=== PATIENT | male | born 1965 | race Caucasian/White ===

== ENCOUNTER 2017-01-10 10:22 | Outpatient (CLI) ==
[2017-01-10 11:03] LABS: BASOPHILS # (AUTO) 0.1 K/uL (0-0.2); BASOPHILS % (AUTO) 1.3 % (0.0-3.0); EOSINOPHILS % (AUTO) 0.5 % (0.0-7.0); HEMATOCRIT 40.7 % (42.0-52.0); HEMOGLOBIN 15.6 g/dl (14.0-18.0); IMMATURE GRANULOCYTE % (AUTO) 0.3 % (0.0-5.0); LYMPHOCYTES # (AUTO) 0.7 K/uL (0.60-3.4); MEAN CORPUSCULAR HEMOGLOBIN 36.2 pg (27.0-31.0); MEAN CORPUSCULAR HGB CONC 38.3 (31.8-35.4); MEAN CORPUSCULAR VOLUME 94.4 fl (80.0-94.0); MONOCYTES # (AUTO) 0.4 K/uL (0.4-2.0); MONOCYTES % (AUTO) 10.7 (0-10); NEUTROPHILS # (AUTO) 2.8 K/ul (2.0-6.9); NEUTROPHILS % (AUTO) 70.2; PLATELET COUNT 89 10^3/uL (140-440); RED BLOOD COUNT 4.31 10^6/ul (4.70-6.10); WHITE BLOOD COUNT 3.94 K/ul (4.2-10.2)
[2017-01-10 11:24] LABS: ALBUMIN 3.5 g/dL (3.4-5.0); ALBUMIN/GLOBULIN RATIO 0.9; ANION GAP 17.1; BILIRUBIN,TOTAL 1.3 mg/dL (0.00-1.20); BUN/CREATININE RATIO 3.94; CALCIUM 8.4 mg/dL (8.2-10.2); CHOL/HDL RATIO 1.5 (4.5-6.4); CREATININE 0.76 mg/dL (0.60-1.10); POTASSIUM 4.1 mmol/L (3.5-5.1); TOTAL PROTEIN 7.4 g/dL (6.4-8.2)
== END 2017-01-10 10:23 | disposition home or self-care (01) ==
LOC: LAB 10:22
PROVIDERS: ATTEND Internal Medicine
DX: J44.9 Chronic obstructive pulmonary disease, unspecified (principal); E78.5 Hyperlipidemia, unspecified; I10 Essential (primary) hypertension; K21.9 Gastro-esophageal reflux disease without esophagitis
CPT/HCPCS: 36415; 80053; 80061; 82607; 83036; 84443; 85025

== ENCOUNTER 2017-01-11 10:21 | Emergency (ER) ==
[2017-01-11 10:27] VITALS: BP 148/105; TEMP 99.4; BMI 22.1
--- NOTE | 2017-01-11 11:06 | ED.PDOC ---
General ED Provider: Dr. ATIYA RICHARDS JR Chief Complaint: Non-specific Complaint Stated Complaint: ABNORMAL LIVER ENZYMES ROUTINE BLOOD DRAW. GAS LEAK HADN'T FELT WELL DR. BARRERA RAN LAB WORK HE USUALLY DRINKS UNTIL PASSES OUT T HASN'T HAD ANY 5 DAYS. DRINKS UNTIL HE PASSES OUT FOR 2-3 DAYS "LAY OFF" FOR DAYS THEN REPEAT 99.4 95 20 97% 148/105 had been syncopal in RV with gas leak but windows crackes complains of strange taste in mouth since episode does have sore throat Time Seen by Physician: 11:06 Mode of Arrival: Walk-In Information Source: Patient Exam Limitations: No limitations Primary Care Provider: STEFFANIE BARRERA Nursing and Triage Documentation Reviewed and Agree: No Review of Systems - Review Of Systems Constitutional: Reports: Malaise, Weakness, Loss of appetite Eyes: Reports: No symptoms Ears, Nose, Mouth, Throat: Reports: Throat pain Respiratory: Reports: Cough Cardiac: Reports: Lightheadedness GI: Reports: No symptoms : Reports: No symptoms Musculoskeletal: Reports: No symptoms Skin: Reports: No symptoms Neurological: Reports: No symptoms Endocrine: Reports: No symptoms Hematologic/Lymphatic: Reports: No symptoms All Other Systems: Other Past Medical History - Past Medical History Previously Healthy: Yes Endocrine: Reports: None Cardiovascular: Reports: None Respiratory: Reports: None Hematological: Reports: None Gastrointestinal: Reports: None Genitourinary: Reports: None Neuro/Psych: Reports: Anxiety, Depression Musculoskeletal: Reports: None Cancer: Reports: None Other Pertinent Past Medical History: alcohol abuse - Surgical History General Surgical History: Reports: Orthopedic (RIGHT FOREARM ) - Family History Family History: Reports: Unknown - Social History Smoking Status: Current every day smoker Hx Substance Use: No Alcohol Screening: Heavy Physical Exam - Physical Exam Appearance: Well-appearing, Thin Eyes: JAYASHREE, EOMI, Conjunctiva clear ENT: Ears normal, Nose normal, Erythema Neck: Supple Respiratory: Airway patent, Breath sounds equal, Breath sounds diminished, Rhonchi, Wheezes Cardiovascular: RRR, Pulses normal, No rub, No murmur GI/: Soft, Nontender, No masses, Bowel sounds normal, No Organomegaly Musculoskeletal: Normal strength, ROM intact, No edema, No calf tenderness Skin: Warm, Dry, Normal color Neurological: Sensation intact, Motor intact, Reflexes intact, Cranial nerves intact, Alert, Oriented Psychiatric: Affect appropriate, Mood appropriate Critical Care Note - Critical Care Note Total Time (mins): 0 Course - Course Hematology/Chemistry: 01/11/17 11:20 Orders, Labs, Meds: Lab Review 01/11/17 11:20 PT 10.5 INR 1.02 APTT 26.1 Sodium 126 L Potassium 3.7 Chloride 92 L Carbon Dioxide 22 Anion Gap 15.7 BUN 3 L Creatinine 0.78 Estimated GFR (MDRD) 104.00 BUN/Creatinine Ratio 3.84 Glucose 95 Calcium 9.0 Total Bilirubin 1.12 AST 182 H D ALT 151 H Alkaline Phosphatase 160 H Total Protein 7.9 Albumin 3.6 Globulin 4.3 Albumin/Globulin Ratio 0.84 Urine Color Yellow Urine Clarity Clear Urine pH 7.0 Ur Specific [place] 1.010 Urine Protein Negative Urine Glucose (UA) Negative Urine Ketones Trace Urine Blood Negative Urine Nitrite Negative Urine Bilirubin Negative Urine Urobilinogen 1.0 Ur Leukocyte Esterase Negative Orders Category Date Time Status COMPREHENSIVE METABOLIC PANEL Stat LAB 01/11/17 11:20 Completed HEPATITIS PANEL, ACUTE Stat LAB 01/11/17 11:20 Received MOLECULAR GROUP A STREP Stat LAB 01/11/17 11:20 Results PARTIAL THROMBOPLASTIN TIME Stat LAB 01/11/17 11:20 Completed PT WITH INR Stat LAB 01/11/17 11:20 Completed STREP SCREEN Stat LAB 01/11/17 11:20 Results UA [URINALYSIS C & S IF INDICATED] Stat LAB 01/11/17 11:20 Completed Vital Signs: Temp Pulse Resp BP Pulse Ox 01/11/17 10:21 99.4 F 95 H 20 148/105 H 97 Departure - Departure Time of Disposition: 12:35 Disposition: HOME SELF-CARE Discharge Problem: Hyponatremia, Alcoholic liver disorder Instructions: Fluid Restriction (ED), Hyponatremia (ED), Alcohol Use Disorder ( ED) Condition: Fair Pt referred to PMD for follow-up: Yes Additional Instructions: recheck PMD 2-3 days restrict water to one liter other liquids to one half liter add protein vegetables are recommended Allergies/Adverse Reactions: Allergies No Known Allergies Allergy (Unverified 01/11/17 10:29) Home Medications: Ambulatory Orders Budesonide/Formoterol Fumarate [Symbicort 80-4.5 Mcg Inhaler] 1 puff IH DAILY Diltiazem HCl 60 mg PO BID 01/11/17 Ranitidine HCl 150 mg PO DAILY 01/11/17
[2017-01-11 11:29] LABS: BILIRUBIN,URINE Negative (NEGATIVE); KETONES,URINE Trace (NEGATIVE); LEUKOCYTE ESTERASE ,URINE Negative (NEGATIVE); NITRITE,URINE Negative (NEGATIVE); PROTEIN,URINE Negative (NEGATIVE); URINE, BLOOD Negative (NEGATIVE)
[2017-01-11 11:30] LABS: ADD URINE MICROSCOPIC NO
[2017-01-11 11:38] LABS: ALBUMIN 3.6 g/dL (3.4-5.0); ALBUMIN/GLOBULIN RATIO 0.84; ANION GAP 15.7; BILIRUBIN,TOTAL 1.12 mg/dL (0.00-1.20); BUN/CREATININE RATIO 3.84; CREATININE 0.78 mg/dL (0.60-1.10); POTASSIUM 3.7 mmol/L (3.5-5.1); TOTAL PROTEIN 7.9 g/dL (6.4-8.2)
[2017-01-11 11:42] LABS: PARTIAL THROMBOPLASTIN TIME 26.1 SEC (23.9-40.0); PROTHROMBIN TIME 10.5 SEC (9.3-11.0)
== END 2017-01-11 12:58 | disposition home or self-care (01) ==
LOC: ED 10:21
DX: E87.1 Hypo-osmolality and hyponatremia (principal); K70.9 Alcoholic liver disease, unspecified; F17.210 Nicotine dependence, cigarettes, uncomplicated
CPT/HCPCS: 36415; 80053; 80074; 81001; 85610; 85730; 87651; 87880; 99283

== ENCOUNTER 2017-03-07 10:14 | Outpatient (CLI) ==
[2017-03-07 10:45] LABS: BASOPHILS % (AUTO) 0.7 % (0.0-3.0); HEMATOCRIT 44.9 % (42.0-52.0); HEMOGLOBIN 17.1 g/dl (14.0-18.0); IMMATURE GRANULOCYTE % (AUTO) 0.2 % (0.0-5.0); LYMPHOCYTES # (AUTO) 1.9 K/uL (0.60-3.4); LYMPHOCYTES % (AUTO) 42.4 (10.0-50.0); MEAN CORPUSCULAR HEMOGLOBIN 35.1 pg (27.0-31.0); MEAN CORPUSCULAR HGB CONC 38.1 (31.8-35.4); MEAN CORPUSCULAR VOLUME 92.2 fl (80.0-94.0); MONOCYTES # (AUTO) 0.4 K/uL (0.4-2.0); MONOCYTES % (AUTO) 7.8 (0-10); NEUTROPHILS # (AUTO) 2.2 K/ul (2.0-6.9); NEUTROPHILS % (AUTO) 48.9; PLATELET COUNT 57 10^3/uL (140-440); RED BLOOD COUNT 4.87 10^6/ul (4.70-6.10); WHITE BLOOD COUNT 4.51 K/ul (4.2-10.2)
[2017-03-07 11:09] LABS: ALBUMIN 2.8 g/dL (3.4-5.0); ALBUMIN/GLOBULIN RATIO 0.6; ANION GAP 18.3; BILIRUBIN,TOTAL 0.82 mg/dL (0.00-1.20); BUN/CREATININE RATIO 10.71; CALCIUM 8.3 mg/dL (8.2-10.2); CHOL/HDL RATIO 8.1 (4.5-6.4); CREATININE 0.84 mg/dL (0.60-1.10); POTASSIUM 4.3 mmol/L (3.5-5.1); TOTAL PROTEIN 7.5 g/dL (6.4-8.2)
[2017-03-07 20:01] VITALS: BMI 21.4
== END 2017-03-07 10:15 | disposition home or self-care (01) ==
LOC: LAB 10:14
PROVIDERS: ATTEND Internal Medicine
DX: J44.9 Chronic obstructive pulmonary disease, unspecified (principal); I10 Essential (primary) hypertension; E78.5 Hyperlipidemia, unspecified; K21.9 Gastro-esophageal reflux disease without esophagitis; Z12.5 Encounter for screening for malignant neoplasm of prostate
CPT/HCPCS: 36415; 80053; 80061; 84443; 85025

== ENCOUNTER 2017-03-07 15:38 | Inpatient (IN) ==
--- NOTE | 2017-03-07 15:55 | ED.PDOC ---
General ED Provider: Dr. ATIYA RICHARDS JR Chief Complaint: Abnormal Labs Stated Complaint: sent to hosp for outpt labs earlier today--md office notified him to report to er for admit due to low sodium--pt states has been fatigued-- had diarrhea recently[End]101.5 111 20 94% 109/80 right calf and thigh tenderness for 2-3 days Time Seen by Physician: 15:55 Mode of Arrival: Walk-In Information Source: Patient Exam Limitations: No limitations Primary Care Provider: STEFFANIE BARRERA Nursing and Triage Documentation Reviewed and Agree: No Review of Systems - Review Of Systems Constitutional: Reports: Malaise, Weakness Eyes: Reports: No symptoms Ears, Nose, Mouth, Throat: Reports: No symptoms Respiratory: Reports: No symptoms Cardiac: Reports: No symptoms GI: Reports: No symptoms : Reports: No symptoms Musculoskeletal: Reports: Muscle pain Skin: Reports: No symptoms Neurological: Reports: No symptoms Endocrine: Reports: No symptoms Hematologic/Lymphatic: Reports: No symptoms All Other Systems: Other Past Medical History - Past Medical History Previously Healthy: Yes Endocrine: Reports: None Cardiovascular: Reports: None Respiratory: Reports: None Hematological: Reports: None Gastrointestinal: Reports: None Genitourinary: Reports: None Neuro/Psych: Reports: Anxiety, Depression Musculoskeletal: Reports: None Cancer: Reports: None Other Pertinent Past Medical History: alcohol abuse - Surgical History General Surgical History: Reports: Orthopedic (RIGHT FOREARM ) - Family History Family History: Reports: Unknown - Social History Smoking Status: Current every day smoker, Heavy tobacco smoker Hx Substance Use: No Alcohol Screening: Heavy Physical Exam - Physical Exam Appearance: Well-appearing, Thin Pain Distress: Mild Eyes: JAYASHREE, EOMI, Conjunctiva clear ENT: Ears normal, Nose normal, Oropharynx normal Neck: Supple Respiratory: Airway patent, Rhonchi, Wheezes Cardiovascular: RRR, Pulses normal, No rub, No murmur GI/: Soft, Nontender, No masses, Bowel sounds normal, No Organomegaly Musculoskeletal: Normal strength, ROM intact, No edema, No calf tenderness Skin: Warm, Dry, Normal color Neurological: Sensation intact, Motor intact, Reflexes intact, Cranial nerves intact, Alert, Oriented Psychiatric: Affect appropriate, Mood appropriate Interpretation - Radiology Interpretation Radiology Interpretation By: Radiologist Radiology Results: No acute changes Exam Interpreted: CXR (old left sided rib fractures) - EKG Interpretation Time of EKG #1: 17:28 Rate: Normal Rhythm: Sinus (95) Ectopy: None [place]: NL ST Segment: Normal Physician Notification - Case Discussed Physician Notified: DR BARRERA Time of Notification: 18:45 (NS DT PRECAUTIONS) Critical Care Note - Critical Care Note Total Time (mins): 10 Course - Course Orders, Labs, Meds: Lab Review 03/07/17 03/07/17 15:55 16:18 D-Dimer (Manual) 7348.09 Lactic Acid 18.1 Procalcitonin 0.46 Urine Color Dark Urine Clarity Clear Urine pH 5.5 Ur Specific [place] 1.025 Urine Protein 2+ Urine Glucose (UA) Negative Urine Ketones 1+ Urine Blood Negative Urine Nitrite Negative Urine Bilirubin 2+ Urine Urobilinogen 4.0 Ur Leukocyte Esterase Negative Urine Microscopic RBC 0-2 Urine Microscopic WBC 0-2 Ur Squamous Epith Cells Not present Amorphous Sediment Trace Urine Mucus 3+ Plasma/Serum Alcohol < 10.0 Orders Category Date Time Status ADMIT PATIENT INPATIENT .TO [facility] (MONITORED BED) ADMISSION 03/07/17 18: 57 Active EKG-(ED ONLY) Stat CARDIO 03/07/17 17:15 Completed EKG-(IP & OP ONLY) DAILY CARDIO 03/08/17 06:00 Ordered EKG-(IP & OP ONLY) DAILY CARDIO 03/09/17 06:00 Ordered EKG-(IP & OP ONLY) DAILY CARDIO 03/10/17 06:00 Ordered ACTIVITY .Early Mobilization for VTE Prevention CARE 03/07/17 18:57 Active C-DIFF MONITORING (NURSING) BID CARE 03/07/17 16:04 Active INTAKE & OUTPUT Q8HR CARE 03/07/17 18:57 Active IV ACCESS ONCE CARE 03/07/17 15:51 Active NPO REMINDER: IMAGING ONCE CARE 03/07/17 17:26 Active TELEMETRY MONITORING TELE CARE 03/07/17 18:59 Active VITAL SIGNS Q8HR CARE 03/07/17 18:57 Active REGULAR DIET DIETARY 03/07/17 Dinner Ordered ED CHILD CAREGIVER APPLIED .ONCE EMERGENCY 03/07/17 15:51 Active ED VITAL SIGNS Q1HR EMERGENCY 03/07/17 15:51 Active ALCOHOL LEVEL [BLOOD ALCOHOL] Stat LAB 03/07/17 16:18 Completed BLOOD CULTURE Stat LAB 03/07/17 16:18 Received CBC W/ AUTO DIFF DAILY@0600 LAB 03/08/17 06:00 Ordered CBC W/ AUTO DIFF DAILY@0600 LAB 03/09/17 06:00 Ordered CBC W/ AUTO DIFF DAILY@0600 LAB 03/10/17 06:00 Ordered CBC W/ AUTO DIFF DAILY@0600 LAB 03/11/17 06:00 Ordered CBC W/ AUTO DIFF DAILY@0600 LAB 03/12/17 06:00 Ordered CBC W/ AUTO DIFF DAILY@0600 LAB 03/13/17 06:00 Ordered CBC W/ AUTO DIFF DAILY@0600 LAB 03/14/17 06:00 Ordered CBC W/ AUTO DIFF DAILY@0600 LAB 03/15/17 06:00 Ordered CBC W/ AUTO DIFF DAILY@0600 LAB 03/16/17 06:00 Ordered CBC W/ AUTO DIFF DAILY@0600 LAB 03/17/17 06:00 Ordered CBC W/ AUTO DIFF DAILY@0600 LAB 03/18/17 06:00 Ordered CBC W/ AUTO DIFF DAILY@0600 LAB 03/19/17 06:00 Ordered CBC W/ AUTO DIFF DAILY@0600 LAB 03/20/17 06:00 Ordered CBC W/ AUTO DIFF DAILY@0600 LAB 03/21/17 06:00 Ordered CBC W/ AUTO DIFF DAILY@0600 LAB 03/22/17 06:00 Ordered CBC W/ AUTO DIFF DAILY@0600 LAB 03/23/17 06:00 Ordered CBC W/ AUTO DIFF DAILY@0600 LAB 03/24/17 06:00 Ordered CBC W/ AUTO DIFF DAILY@0600 LAB 03/25/17 06:00 Ordered CBC W/ AUTO DIFF DAILY@0600 LAB 03/26/17 06:00 Ordered CBC W/ AUTO DIFF DAILY@0600 LAB 03/27/17 06:00 Ordered CMP [COMPREHENSIVE METABOLIC PANEL] Stat LAB 03/07/17 19:00 Received D-DIMER Stat LAB 03/07/17 16:18 Completed LACTIC ACID Stat LAB 03/07/17 16:18 Completed OCCULT BLOOD, STOOL Stat LAB 03/07/17 16:03 Uncollected PROCALCITONIN Stat LAB 03/07/17 16:18 Completed URINALYSIS C & S IF INDICATED Stat LAB 03/07/17 15:55 Completed c-diff [C. DIFFICILE] Routine LAB 03/07/17 16:03 Uncollected Nicotine 21 mg [Nicoderm 21 mg] MEDS 03/07/17 16:33 Discontinued 1 patch TD ONCE STA Sodium Chloride 0.9% [Sodium Chloride] 1,000 ml MEDS 03/07/17 15:57 Active IV 100 mls/hr Sodium Chloride 0.9% [Sodium Chloride] 1,000 ml MEDS 03/07/17 19:00 Ordered IV 75 mls/hr Sodium Chloride 0.9% [Sodium Chloride] 500 ml MEDS 03/07/17 15:57 Discontinued IV BOLUS RESUSCITATION STATUS Routine OTHERS 03/07/17 18:57 Ordered CHEST, 2 VIEWS PA & LAT Stat RADS 03/07/17 16:[address] CHEST PE PROTOCOL Stat RADS 03/07/17 17:25 Completed Medications Generic Name Dose Route Start Last Admin Trade Name Freq PRN Reason Stop Dose Admin Chlordiazepoxide HCl 25 mg 03/07/17 19:04 Librium PO Q4H PRN Alcohol Withdrawal Sodium Chloride 1,000 mls @ 100 mls/hr 03/07/17 15:57 03/07/17 17:17 Sodium Chloride IV 03/08/17 01:56 100 mls/hr .Q10H STA Administration Sodium Chloride 1,000 mls @ 75 mls/hr 03/07/17 19:00 Sodium Chloride IV .[id number] RAFA Discontinued Medications Generic Name Dose Route Start Last Admin Trade Name Freq PRN Reason Stop Dose Admin Chlordiazepoxide HCl 25 mg 03/07/17 19:30 Librium PO Q4H RAFA Sodium Chloride 500 mls @ 1,000 mls/hr 03/07/17 15:57 03/07/17 16:37 Sodium Chloride IV 03/07/17 16:26 1,000 mls/hr BOLUS STA Administration Nicotine 1 patch 03/07/17 16:33 03/07/17 16:41 Nicoderm 21 Mg TD 03/07/17 16:34 1 patch ONCE STA Administration Vital Signs: Temp Pulse Resp BP Pulse Ox 03/07/17 18:28 100.7 F H 93 H 20 133/90 03/07/17 16:48 101.7 F H 92 H 20 129/80 96 03/07/17 15:38 101.5 F H 111 H 20 109/80 94 L Departure - Departure Time of Disposition: 17:29 Disposition: ADMITTED INPATIENT Discharge Problem: Hyponatremia Condition: Stable Pt referred to PMD for follow-up: Yes Allergies/Adverse Reactions: Allergies No Known Allergies Allergy (Verified 03/07/17 15:46) Home Medications: Ambulatory Orders Budesonide/Formoterol Fumarate [Symbicort 80-4.5 Mcg Inhaler] 1 puff IH DAILY Diltiazem HCl 60 mg PO BID 01/11/17 Ranitidine HCl 150 mg PO DAILY 01/11/17
[2017-03-07] MEDS ORDERED: SODIUM CHLORIDE 500 ML IV STA (15:57)
[2017-03-07] MEDS ORDERED: SODIUM CHLORIDE 1,000 ML IV STA (15:57)
[2017-03-07 16:18] LABS: BILIRUBIN,URINE 2+ (NEGATIVE); KETONES,URINE 1+ (NEGATIVE); LEUKOCYTE ESTERASE ,URINE Negative (NEGATIVE); NITRITE,URINE Negative (NEGATIVE); PH,URINE 5.5 (5-9); PROTEIN,URINE 2+ (NEGATIVE); URINE, BLOOD Negative (NEGATIVE)
[2017-03-07 16:20] LABS: ADD URINE MICROSCOPIC YES
--- NOTE | 2017-03-07 16:30 | DI ---
EXAM: Two views of the chest. History: Cough and wheezing Comparison: Chest radiograph 01/13/2016 Findings: Heart size is within normal limits. No focal consolidation. No appreciable pleural flui d and no pneumothorax. No acute osseous abnormalities. Old left-sided rib fractures again noted. Atherosclerotic vascular calcifications. Impression: No acute cardiopulmonary process. No change compared to the prior study.
[2017-03-07] MEDS ORDERED: NICODERM 21 MG TD STA (16:33)
--- NOTE | 2017-03-07 18:28 | CT ---
Examination: CTA chest with contrast 03/07/2017 Clinical information: Fever, right calf tenderness. Comparison: Chest radiographs same day. TECHNIQUE: Postcontrast helical imaging was performed from the thoracic inlet to the lung bases [facility] CT PA protocol. 3 mm axial, sagittal and coronal, 3-D MIP sagittal and coronal, 3-D volume r endered and 3-D MIP images are submitted for review. FINDINGS: The main pulmonary arteries, lobar and segmental arterial branches opacify without eviden ce of pulmonary embolism. The thoracic aorta is normal in caliber. There is calcific atherosclerot ic plaque involving the thoracic aorta. Coronary artery calcifications are identified. The heart s ize is within normal limits. There is no pericardial nor pleural effusion. No enlarged axillary, m ediastinal or hilar lymphadenopathy is seen. No focal area of consolidation is evident within eithe r lung. There is trace right basilar atelectasis or fibrosis. Slight elevation of the right hemidia phragm. There are mild chronic anterior wedge compression deformities of the T6, T7, T8, T9 and T10 vertebral bodies with an accentuated thoracic kyphosis. Chronic mid and lower thoracic Schmorl's no vangie. There is an S-shaped thoracic scoliosis. Impression: 1. No CT evidence of acute disease within the chest. Specifically, no evidence of pulmonary emboli sm. 2. ASVD. 3. S-shaped thoracic scoliosis. Mild chronic anterior wedge compression deformities of the T6-T10 v ertebral bodies with an accentuated thoracic kyphosis. Consider Scheuermann disease. Chronic multi level Schmorl's nodes.
[2017-03-07] MEDS ORDERED: LIBRIUM PO PRN (19:04)
[2017-03-07 19:24] LABS: ALBUMIN 2.4 g/dL (3.4-5.0); ALBUMIN/GLOBULIN RATIO 0.71; ANION GAP 14.7; BILIRUBIN,TOTAL 0.66 mg/dL (0.00-1.20); BUN/CREATININE RATIO 12.5; CALCIUM 7.4 mg/dL (8.2-10.2); CREATININE 0.72 mg/dL (0.60-1.10); POTASSIUM 3.7 mmol/L (3.5-5.1); TOTAL PROTEIN 5.8 g/dL (6.4-8.2)
[2017-03-07] MEDS ORDERED: LIBRIUM PO SCH (19:30)
[2017-03-07 20:01] VITALS: BMI 21.4
[2017-03-07] MEDS: SODIUM CHLORIDE 1,000 ML IV SCH ×2 (20:16→23:30)
[2017-03-07] MEDS: THIAMINE IM SCH (21:30)
[2017-03-08 04:51] LABS: BASOPHILS % (AUTO) 0.9 % (0.0-3.0); HEMATOCRIT 36.5 % (42.0-52.0); HEMOGLOBIN 13.6 g/dl (14.0-18.0); IMMATURE GRANULOCYTE % (AUTO) 0.7 % (0.0-5.0); LYMPHOCYTES # (AUTO) 2.7 K/uL (0.60-3.4); LYMPHOCYTES % (AUTO) 59.7 (10.0-50.0); MEAN CORPUSCULAR HEMOGLOBIN 34.2 pg (27.0-31.0); MEAN CORPUSCULAR HGB CONC 37.3 (31.8-35.4); MEAN CORPUSCULAR VOLUME 91.7 fl (80.0-94.0); MONOCYTES # (AUTO) 0.6 K/uL (0.4-2.0); MONOCYTES % (AUTO) 12.2 (0-10); NEUTROPHILS # (AUTO) 1.2 K/ul (2.0-6.9); NEUTROPHILS % (AUTO) 26.5; PLATELET COUNT 52 10^3/uL (140-440); RED BLOOD COUNT 3.98 10^6/ul (4.70-6.10); WHITE BLOOD COUNT 4.59 K/ul (4.2-10.2)
[2017-03-08 05:03] LABS: ALBUMIN 2.2 g/dL (3.4-5.0); ALBUMIN/GLOBULIN RATIO 0.65; ANION GAP 12.9; BILIRUBIN,TOTAL 0.64 mg/dL (0.00-1.20); BUN/CREATININE RATIO 13.23; CALCIUM 7.4 mg/dL (8.2-10.2); CREATININE 0.68 mg/dL (0.60-1.10); POTASSIUM 3.9 mmol/L (3.5-5.1); TOTAL PROTEIN 5.6 g/dL (6.4-8.2)
[2017-03-08] MEDS: SYMBICORT 80-4.5 MCG INHALER IH SCH (08:17)
[2017-03-08] MEDS: CARDIZEM PO SCH ×2 (08:19→20:31)
[2017-03-08] MEDS: ZANTAC PO SCH ×2 (08:19→20:31)
[2017-03-08] MEDS: THIAMINE IM SCH (08:21)
[2017-03-08] MEDS ORDERED: NON-FORMULARY MEDICATION (Ranitidine Hcl [Ranitidine Hcl] 150 MG) PO SCH ×22 (09:00)
--- NOTE | 2017-03-08 10:05 | US ---
EXAM: Ultrasound abdomen limited. HISTORY: Thrombocytopenia. Focal ileus. COMPARISON: None available. TECHNIQUE: Abdominal, real time with image documentation: limited (eg, single organ, quadrant, fol low-up) FINDINGS: The liver demonstrates homogeneous echotexture without intrahepatic biliary dilatation. Portal venous flow is normal in direction. The gallbladder contains some low level internal echoes. The gallbladder is without shadowing stones, wall thickening or pericholecystic fluid. Common connor t measures approximately 0.4 cm. The pancreas is not well seen due to bowel gas. IMPRESSION: 1. Gallbladder sludge. 2. No acute sonographic abnormality of the liver, gallbladder or biliary system
--- NOTE | 2017-03-08 10:08 | US ---
Exam: Limited miller-scale ultrasonographic evaluation of the spleen and left kidney. Limited ultrasound evaluation of the abdomen. Comparison: None available. Reason for exam: Thrombocytopenia. FINDINGS: The spleen measures approximately 9.83 x 4.42 x 8.37 cm with normal appearing echotexture and normal vascular flow. No parenchymal lesions are seen within the spleen. The left kidney measures approximately 10.84 x 5.25 x 4.21 cm without hydronephrosis or nephrolithia sis. Impression: Unremarkable ultrasonographic evaluation of the spleen and left kidney.
[2017-03-08] MEDS: SODIUM CHLORIDE 1,000 ML IV SCH (11:54)
--- NOTE | 2017-03-08 14:10 | PCM.PROG ---
Attending Provider: ATTENDING PROVIDER: Dr. STEFFANIE BARRERA DATE OF SERVICE: 03/08/17 SUBJECTIVE: This 51 year old WHITE/ M was hospitalized 03/07/17. The patient is hospitalized with hyponatremia. He has history of chronic hyponatremia but this time sodium was 118 and is feeling normal. He hasl no complaints. The patient is an alcoholic, is malnourished and doesn't eat regular meals. He drinks heavily and smokes heavily; has a poor lifestyle. The patient lives alone and is taken care of by a cousin. No other immediate family members. REVIEW OF SYSTEMS: CONSTITUTIONAL: No night sweats. No fatigue, malaise, lethargy. No fever or chills. HEENT: Eyes: No visual changes. No eye pain. No eye discharge. ENT: No runny nose. No epistaxis. No sinus pain. No odynophagia. No congestion. RESPIRATORY: No cough, no congestion. No hemoptysis. CARDIOVASCULAR: No angina symptoms. No CHF symptoms. No atypical chest pain for CAD. No palpitations. No shortness of breath. GASTROINTESTINAL: No abdominal pain. No nausea or vomiting. No diarrhea or constipation. No hematemesis. No hematochezia. GENITOURINARY: No urgency. No frequency. No dysuria. No hematuria. No obstructive symptoms. No discharge. No pain. No significant abnormal bleeding. MUSCULOSKELETAL: Generalized bodyaches. NEUROLOGICAL: Awake, alert, oriented to time, place and person. No headache. No neck pain. No syncope. No seizures. No dizziness. PSYCHIATRIC: Not anxious. No depression. No suicidal thoughts. No homicidal thoughts. SKIN: No rash. No lesions. No wounds. ENDOCRINE: No unexplained weight loss. No weight gain. HEMATOLOGIC/LYMPHATIC: No anemia. No purpura. No petechiae. No prolonged or excessive bleeding. No palpable lymph nodes. PHYSICAL EXAMINATION: GENERAL: The patient is awake, alert and oriented, lying in bed in no distress. VITAL SIGNS: Temperature 97.6 F, Pulse 96, Respiratory Rate 24, BP 122/72, Pulse Ox 96% HEENT: Head normocephalic, atraumatic. Eyes: Extraocular muscles are intact. Pupils are equal, round and reactive to light and accommodation. Ears: No lesions. Nose appeared normal. Throat: No exudate or erythema. NECK: Supple. No JVD, no carotid bruit. No lymphadenopathy or thyromegaly. LUNGS: Decreased breath sounds. Clear to auscultation. Percussion note normal. Chest symmetrical. HEART: S1, S2, no S3. No murmurs. No cyanosis or clubbing. No ascites. Pulses: Dorsalis pedis and posterior tibial pulses +1 to +2 both sides. ABDOMEN: Soft. Non-tender. Bowel sounds active. No CVA tenderness. No mass felt. EXTREMITIES: No edema. Full range of motion of all extremities, equal. NEUROLOGIC: No focal deficit. Cranial nerves II through XII are grossly intact. No headache, no double vision or headache. SKIN: Not dry. Intact. Turgor-normal. LYMPHATIC: No palpable lymph nodes/no lymphedema. MUSCULOSKELETAL: Normal joints with no swelling. Muscle tone is normal. LAB REVIEW: 03/08/17 04:20 03/08/17 04:20 03/08/17 04:20: WBC 4.59, RBC 3.98 L, Hgb 13.6 L D, Hct 36.5 L D, MCV 91.7, MCH 34.2 H, MCHC 37.3 H, RDW Coeff of Marcus 13.1, Plt Count 52 L, Immature Gran % ( Auto) 0.7, Neut % (Auto) 26.5, Lymph % (Auto) 59.7 H, [place] % (Auto) 12.2 H, Eos % (Auto) 0.0, Baso % (Auto) 0.9, Immature Gran # (Auto) 0.0, Neut # 1.2 L, Lymph # 2.7, Coleman # 0.6, Eos # 0.0, Baso # 0.0, Sodium 122 L, Potassium 3.9, Chloride 91 L, Carbon Dioxide 22, Anion Gap 12.9, BUN 9, Creatinine 0.68, Estimated GFR (MDRD) 122.00, BUN/Creatinine Ratio 13.23, Glucose 85, Calcium 7.4 L, Total Bilirubin 0.64, AST 70 H, ALT 42, Alkaline Phosphatase 93, Total Protein 5.6 L, Albumin 2.2 L, Globulin 3.4, Albumin/Globulin Ratio 0.65 ASSESSMENT: 1. Hyponatremia likely alcoholism and increased fluid intake secondary to that. 2. Thrombocytopenia; abnormal liver profile; history of abnormal liver profile likely alcoholic hepatitis/possibility of liver cirrhosis, rule out. PLAN: 1. Ultrasound of liver and spleen 2. Restrict fluid intake by 500 cc Plan and coordination of the patient's care discussed in the presence of Raking Machine Operator and nurse. EDUCATION: Discussion with the patient concerning his diagnoses and strongly advised the patient to quit smoking and to seek help for his alcoholism. The patient refuses any help for alcoholism. CONDITION: STABLE PROGNOSIS: POOR SCRIBED BY: GARCIA ROSALES Pizza Baker scribed while in presence of service performed by Dr. STEFFANIE BARRERA on 03/08/17 ([id number])
[2017-03-08] MEDS: NICODERM 21 MG TD SCH (18:07)
[2017-03-09] MEDS: SODIUM CHLORIDE 1,000 ML IV SCH (00:56)
[2017-03-09 05:12] LABS: BASOPHILS # (AUTO) 0.1 K/uL (0-0.2); BASOPHILS % (AUTO) 1.1 % (0.0-3.0); EOSINOPHILS % (AUTO) 0.2 % (0.0-7.0); HEMATOCRIT 36.2 % (42.0-52.0); HEMOGLOBIN 13.3 g/dl (14.0-18.0); IMMATURE GRANULOCYTE % (AUTO) 0.2 % (0.0-5.0); LYMPHOCYTES # (AUTO) 3.3 K/uL (0.60-3.4); LYMPHOCYTES % (AUTO) 70.2 (10.0-50.0); MEAN CORPUSCULAR HEMOGLOBIN 34.5 pg (27.0-31.0); MEAN CORPUSCULAR HGB CONC 36.7 (31.8-35.4); MEAN CORPUSCULAR VOLUME 93.8 fl (80.0-94.0); MONOCYTES # (AUTO) 0.4 K/uL (0.4-2.0); MONOCYTES % (AUTO) 8.4 (0-10); NEUTROPHILS # (AUTO) 0.9 K/ul (2.0-6.9); NEUTROPHILS % (AUTO) 19.9; PLATELET COUNT 46 10^3/uL (140-440); RED BLOOD COUNT 3.86 10^6/ul (4.70-6.10); WHITE BLOOD COUNT 4.66 K/ul (4.2-10.2)
[2017-03-09 05:31] LABS: ALBUMIN 2.1 g/dL (3.4-5.0); ALBUMIN/GLOBULIN RATIO 0.66; ANION GAP 10.5; BILIRUBIN,TOTAL 0.47 mg/dL (0.00-1.20); BUN/CREATININE RATIO 9.37; CALCIUM 7.3 mg/dL (8.2-10.2); CREATININE 0.64 mg/dL (0.60-1.10); POTASSIUM 3.5 mmol/L (3.5-5.1); TOTAL PROTEIN 5.3 g/dL (6.4-8.2)
[2017-03-09] MEDS ORDERED: NICODERM 21 MG TD SCH (09:00)
[2017-03-09] MEDS: SYMBICORT 80-4.5 MCG INHALER IH SCH (09:02)
[2017-03-09] MEDS: CARDIZEM PO SCH (09:03)
[2017-03-09] MEDS: ZANTAC PO SCH (09:03)
[2017-03-09] MEDS: THIAMINE IM SCH (09:04)
[2017-03-09] MEDS: NICODERM 21 MG TD SCH (09:08)
--- NOTE | 2017-03-09 12:47 | CM.DICTOOL ---
ADMISSION: 03/07/17 19:00 DISCHARGE: 03/09/17 DISCHARGE HOME DATE OF SERVICE: 03/09/17 FINAL DIAGNOSIS HYPONATREMIA, ACUTE AND CHRONIC COPD MALNUTRITION SECONDARY TO ALCOHOLISM THROMBOCYTOPENIA DDD C-SPINE OSTEOARTHRITIS CURRENT EVERY DAY SMOKER RIGHT FOREARM SURGERY LAST VITALS Temp Pulse Resp BP Pulse Ox 98.0 F 67 20 110/54 L 97 03/09/17 05:32 03/09/17 05:32 03/09/17 08:00 03/09/17 05:32 03/08/17 17:51 ACTIVE MEDICATIONS Budesonide/Formoterol Fumarate (Symbicort 80-4.5 Mcg Inhaler) 1 puff IH DAILY [facility] Last Admin: 03/09/17 09:02 Dose: 1 puff Diltiazem HCl (Cardizem) 60 mg PO BID [facility] Last Admin: 03/09/17 09:03 Dose: 60 mg Ranitidine HCl (Zantac) 150 mg PO BID [facility] Last Admin: 03/09/17 09:03 Dose: 150 mg Thiamine HCl (Thiamine) 100 mg IM DAILY [facility]) Last Admin: 03/09/17 09:04 Dose: 200 mg ALLERGIES No Known Allergies Allergy (Verified 03/07/17 15:46) NEW PRESCRIPTIONS: THIAMINE 100 MG, TAKE ONE TABLET BY MOUTH DAILY FOR 15 DAYS SMOKING: CURRENT EVERY DAY SMOKER THE PATIENT HAS BEEN PROVIDED TEACHING REGARDING RISK FACTORS WITH CONTINUED TOBACCO USE. HE HAS ALSO BEEN PROVIDED INFORMATION ABOUT THE BENEFITS WITH COMPLETE CESSATION. HE HAS NOT VERBALIZED HIS INTENT TO STOP SMOKING. WE WILL CONTINUE TO ENCOURAGE COMPLETE CESSATION DURING OFFICE VISITS. DISEASE SPECIFIC EDUCATION: HYPONATREMIA THROMBOCYTOPENIA ALCOHOLISM AA MEETINGS AVAILABLE TO ATTEND FLUID RESTRICTION HOME MEDICATIONS NEW PRESCRIPTIONS FOLLOW UP LAB REVIEW: 03/09/17 04:27 03/09/17 04:27 03/09/17 04:27: WBC 4.66, RBC 3.86 L, Hgb 13.3 L, Hct 36.2 L, MCV 93.8, MCH 34.5 H, MCHC 36.7 H, RDW Coeff of Marcus 13.2, Plt Count 46 L, Immature Gran % ( Auto) 0.2, Neut % (Auto) 19.9, Lymph % (Auto) 70.2 H, [place] % (Auto) 8.4, Eos % ( Auto) 0.2, Baso % (Auto) 1.1, Immature Gran # (Auto) 0.0, Neut # 0.9 L, Lymph # 3.3, [place] # 0.4, Eos # 0.0, Baso # 0.1, Sodium 128 L, Potassium 3.5, Chloride 97 L, Carbon Dioxide 24, Anion Gap 10.5, BUN 6 L, Creatinine 0.64, Estimated GFR (MDRD) 131.00, BUN/Creatinine Ratio 9.37, Glucose 97, Calcium 7.3 L, Total Bilirubin 0.47, AST 71 H, ALT 43, Alkaline Phosphatase 98, Total Protein 5.3 L, Albumin 2.1 L, Globulin 3.2, Albumin/Globulin Ratio 0.66 PLAN: DISCHARGE HOME TODAY RETURN TO SEE DR. BARRERA IN ONE WEEK. PLEASE CALL TO SCHEDULE YOUR APPOINTMENT [phone] ALCOHOLIC ANONYMOUS MEETINGS ARE HELD AT THE [facility] [employer] ON [address] AT 8 PM NO APPOINTMENT IS REQUIRED TO ATTEND INFORMATION REGARDING TRANSPORTATION WILL BE PROVIDED TO YOU (SMART TRANSPORTATION) RESUME YOUR HOME MEDICATIONS PER LIST PROVIDED BY THE NURSING STAFF NEW PRESCRIPTION: THIAMINE 100 MG, TAKE ONE TABLET BY MOUTH DAILY FOR 15 DAYS ACTIVITY: GET PLENTY OF REST AT HOME. GRADUALLY INCREASE YOUR ACTIVITY ACCORDING TO YOUR TOLERATION STOP SMOKING DIET: TOLERATED DO NOT DRINK EXCESSIVE AMOUNTS OF WATER. TRY TO LIMIT LIQUID INTAKE TO 40 TO 60 OUNCES DAILY NO ALCOHOL SUMMARY: THE PATIENT IS ALERT AND ORIENTED X3. HE CURRENTLY RESIDES IN A MOTOR HOME BEHIND HIS COUSIN'S HOUSE. SHE ALLOWS HIM TO USE HER UTILITIES SUCH ELECTRICITY AND WATER. HE DESIRES TO RETURN TO HIS MOTOR HOME AT DISCHARGE. HE IS INDEPENDENT WITH ADL'S AND HAS NO DME, HOME HEALTH OR HOMEMAKING SERVICES. HE WILL NOT REQUIRE THESE SERVICES AT DISCHARGE. THE PATIENT'S SKIN TURGOR IS INTACT AND WITHOUT DECUBITUS ULCERS. HIS HYDRATION STATUS IS IMPROVED EVIDENCED BY THE IMPROVEMENT IN HIS LAB VALUES WELL HIS SKIN TURGOR. HIS APPETITE HAS IMPROVED. HE HAS RESTED VERY WELL DURING THIS STAY. THE PATIENT IS AWARE AND AGREEABLE FOR THE DISCHARGE PLANS MADE FOR TODAY. AT DISCHARGE HIS CODE STATUS REMAINS FULL CODE. STEFFANIE BARRERA M.D.
--- NOTE | 2017-03-09 14:16 | PCM.PROG ---
Attending Provider: ATTENDING PROVIDER: Dr. STEFFANIE BARRERA DATE OF SERVICE: 03/09/17 SUBJECTIVE: This 51 year old WHITE/ M was hospitalized 03/07/17 with hyponatremia. The patient's hyponatremia has resolved to some extent. The patient states that he he drinks a lot of fluids along with alcohol and he is explained about hyponatremia He shows no signs or symptoms of DT's. REVIEW OF SYSTEMS: CONSTITUTIONAL: No night sweats. No fatigue, malaise, lethargy. No fever or chills. HEENT: Eyes: No visual changes. No eye pain. No eye discharge. ENT: No runny nose. No epistaxis. No sinus pain. No odynophagia. No congestion. RESPIRATORY: No cough, no congestion. No hemoptysis. CARDIOVASCULAR: No angina symptoms. No CHF symptoms. No atypical chest pain for CAD. No palpitations. No shortness of breath. GASTROINTESTINAL: No abdominal pain. No nausea or vomiting. No diarrhea or constipation. No hematemesis. No hematochezia. Appetite is good. GENITOURINARY: No urgency. No frequency. No dysuria. No hematuria. No obstructive symptoms. No discharge. No pain. No significant abnormal bleeding. MUSCULOSKELETAL: No musculoskeletal pain; no joint swelling. NEUROLOGICAL: Awake, alert, oriented to time, place and person. No headache. No neck pain. No syncope. No seizures. No dizziness. PSYCHIATRIC: Not anxious. No depression. No suicidal thoughts. No homicidal thoughts. SKIN: No rash. No lesions. No wounds. ENDOCRINE: No unexplained weight loss. No weight gain. HEMATOLOGIC/LYMPHATIC: No anemia. No purpura. No petechiae. No prolonged or excessive bleeding. No palpable lymph nodes. PHYSICAL EXAMINATION: GENERAL: The patient is awake, alert and oriented time, place and person, lying in bed in no distress. VITAL SIGNS: Temperature 98.0 F, Pulse 67, Respiratory Rate 18, BP 110/54, Pulse Ox 97% HEENT: Head normocephalic, atraumatic. Eyes: Extraocular muscles are intact. Pupils are equal, round and reactive to light and accommodation. Ears: No lesions. Nose appeared normal. Throat: No exudate or erythema. NECK: Supple. No JVD, no carotid bruit. No lymphadenopathy or thyromegaly. LUNGS: Clear to auscultation. Percussion note normal. Chest symmetrical. HEART: S1, S2, no S3. No murmurs. No cyanosis or clubbing. No ascites. Pulses: Dorsalis pedis and posterior tibial pulses +1 to +2 both sides. ABDOMEN: Soft. Non-tender. Bowel sounds active. No CVA tenderness. No mass felt. EXTREMITIES: No edema. Full range of motion of all extremities, equal. NEUROLOGIC: No focal deficit. Cranial nerves II through XII are grossly intact. No headache, no double vision or headache. SKIN: Not dry. Intact. Turgor-normal. LYMPHATIC: No palpable lymph nodes/no lymphedema. MUSCULOSKELETAL: Normal joints with no swelling. Muscle tone is normal. LAB REVIEW: 03/09/17 04:27 03/09/17 04:27 03/09/17 04:27: WBC 4.66, RBC 3.86 L, Hgb 13.3 L, Hct 36.2 L, MCV 93.8, MCH 34.5 H, MCHC 36.7 H, RDW Coeff of Marcus 13.2, Plt Count 46 L, Immature Gran % ( Auto) 0.2, Neut % (Auto) 19.9, Lymph % (Auto) 70.2 H, Shelby % (Auto) 8.4, Eos % ( Auto) 0.2, Baso % (Auto) 1.1, Immature Gran # (Auto) 0.0, Neut # 0.9 L, Lymph # 3.3, Shelby # 0.4, Eos # 0.0, Baso # 0.1, Sodium 128 L, Potassium 3.5, Chloride 97 L, Carbon Dioxide 24, Anion Gap 10.5, BUN 6 L, Creatinine 0.64, Estimated GFR (MDRD) 131.00, BUN/Creatinine Ratio 9.37, Glucose 97, Calcium 7.3 L, Total Bilirubin 0.47, AST 71 H, ALT 43, Alkaline Phosphatase 98, Total Protein 5.3 L, Albumin 2.1 L, Globulin 3.2, Albumin/Globulin Ratio 0.66 ASSESSMENT: 1. Hyponatremia resolving 2. Alcoholism 3. Hypertension 4. Malnutrition 5. Chronic lung disease, heavy smoker PLAN: 1. Counseling for smoking done 2. The patient has shown interest in AA 3. Will continue all the medications 4. Liver profile is normal Plan and coordination of the patient's care discussed in the presence of Clinical Consultant and nurse. CONDITION: STABLE SCRIBED BY: CHANDLER CAMP Assistant Accounting Manager scribed while in presence of service performed by Dr. STEFFANIE BARRERA on 03/09/17 ([id number])
[2017-03-09 14:59] VITALS: BP 112/66; TEMP 98
--- NOTE | 2017-03-15 08:01 | DS ---
DATE OF SERVICE: 03/09/17 FINAL DIAGNOSIS: 1. HYPONATREMIA, ACUTE AND CHRONIC 2. CHRONIC OBSTRUCTIVE PULMONARY DISEASE 3. MALNUTRITION SECONDARY TO ALCOHOLISM 4. THROMBOCYTOPENIA 5. DEGENERATIVE DISC DISEASE OF CERVICAL SPINE 6. OSTEOARTHRITIS 7. CURRENT EVERY DAY SMOKER 8. HISTORY OF RIGHT FOREARM SURGERY VITAL SIGNS AT DISCHARGE: Temperature 98.0, pulse 67, respiratory rate 20, blood pressure 110/54, pulse ox 97. LABS: WBC 4.66, RBC 3.86, low, hemoglobin 13.3, low, hematocrit 36.2, low, MCV 34.5, high, MCHC 36.7, high, platelet count 46, low, Lymph% 70.2, high, Neutrophil 0.9, low, Sodium 128, low, Chloride 97, low, BUN 6, low, Calcium 7.3 , low, AST 7, high, Total protein 5.3, low, Albumin 2.1, low. DISCHARGE INSTRUCTIONS: 1. Discharge home. 2. Return to see Dr. Mena in one week. Please call to schedule your appointment [phone]. 3. Alcoholics Anonymous meeting are held at the [facility] on Fridays at 8 a.m. 4. Information regarding transportation will be provided to ([employer]). 5. Resume your medications as per the list provided by the nursing staff. MEDICATIONS AT DISCHARGE: Symbicort 80/4.5 mcg inhaler, one puff daily Diltiazem 60 mg twice daily Zantac 150 mg twice daily NEW PRESCRIPTIONS: Thiamine 100 mg IM daily DIET INSTRUCTIONS: As tolerated. Do not drink excessive amounts of water. Try to limit liquid intake to 40 to 60 ounces daily. No alcohol. ACTIVITY: Get plenty of rest at home. Gradually increase your activity according to your toleration. SMOKING: Current every day smoker. The patient has been provided teaching regarding risk factors with continued tobacco use. He has also been provided information about the benefits with complete cessation. He has not verbalized his intent to stop smoking. We will continue to encourage complete cessation during office visits. DISEASE SPECIFIC EDUCATION: Was carried out about hyponatremia, thrombocytopenia, alcoholism, AA meetings available to attend, fluid restriction , home medications, new prescription and follow up. HOSPITAL COURSE: 51 year old male hospitalized with hyponatremia. The patient was seen in the ER because on office visit he left with an order to be done at [place] which revealed that his sodium was 118. The patient was given normal saline and was educated about hyponatremia and the need to control his fluid intake along with his alcohol intake. He understood it very well. He seems to be a fairly intelligent man. The patient at the time of discharge was feeling a lot better. He did not have any DT's. He was continued on all of the medications. He has showed interest to join AA, which was encouraged. On discharge, his sodium was 128. Liver profile was much better than before, almost normal. The patient is strongly advised to quit alcohol. The counselling was done, also counselling for smoking was done. The patient is malnourished and he is neglecting himself. The patient is alert and oriented times three He currently resides in a motor home behind his cousin's house. She allows his to use her utilities such as electricity and water. He desires to return to his motor home at discharge. He is independent with ADL's and has no DME, home health or homemaking services. He will not require these services at discharge. The patient's skin turgor is intact and without decubitus ulcers. His hydration status is improved as evidenced by the improvement in his lab values as well as his skin turgor. His appetite has improved. He has rested very well during this stay. The patient is aware and agreeable for the discharge plans made for today. At discharge, his code status remains full code. TIME SPENT: More than 60 minutes. CAM[facility]E
--- NOTE | 2017-03-15 08:22 | HP ---
DATE OF SERVICE: 03/08/17 REASON FOR HOSPITALIZATION: Hyponatremia. HISTORY OF PRESENT ILLNESS: The patient is hospitalized with hyponatremia. He has history of chronic hyponatremia, but this time the sodium was 118 and he is feeling normal. He has no complaints. The patient is an alcoholic. He is malnourished and doesn't eat regular meals. He drinks heavily and smokes heavily. He has a poor lifestyle. The patient lives alone and is taken care of by a cousin. No other immediate family members. REVIEW OF SYSTEMS: CONSTITUTIONAL: No night sweats. No fatigue, malaise, lethargy. No fever or chills. HEENT: Eyes: No visual changes. No eye pain. No eye discharge. ENT: No runny nose. No epistaxis. No sinus pain. No sore throat. No odynophagia. No ear pain. No congestion. RESPIRATORY: No cough, no congestion. No hemoptysis. CARDIOVASCULAR: No angina symptoms. No CHF symptoms. No atypical chest pain for CAD. No palpitations. No shortness of breath. GASTROINTESTINAL: No abdominal pain. No nausea or vomiting. No diarrhea or constipation. No hematemesis. No hematochezia. GENITOURINARY: No urgency. No frequency. No dysuria. No hematuria. No obstructive symptoms. No discharge. No pain. No significant abnormal bleeding. MUSCULOSKELETAL: Generalized body aches. NEUROLOGICAL: No headache. No neck pain. No syncope. No seizures. No dizziness. PSYCHIATRIC: Not anxious. No depression. No suicidal thoughts. No homicidal thoughts. SKIN: No rash. No lesions. No wounds. ENDOCRINE: No unexplained weight loss. No weight gain. HEMATOLOGIC/LYMPHATIC: No anemia. No purpura. No petechiae. No prolonged or excessive bleeding. No palpable lymph nodes. PERSONAL/FAMILY/SOCIAL HISTORY: The patient is living by himself. The patient had cousin that takes care of him periodically. Whenever she goes, she takes the food, otherwise the patient eats whatever he gets his hands on. A lot of times the patient says that he is not able to drink, because he doesn't have money to buy any booze. The patient is a heavy smoker. The patient had severe osteoarthritis, along with alcohol abuse and severe chronic lung disease coming from heavy smoking. PAST MEDICAL/SURGICAL PROBLEMS: Chronic obstructive lung disease, severe Malnutrition secondary to alcoholism DDD of C spine Osteoarthritis Tobacco use and abuse, persistent MEDICATIONS: Symbicort 80/405 mcg inhaler, one puff daily Cardizem 60 mg twice daily Zantac 150 mg twice daily ALLERGIES: No known drug allergies PHYSICAL EXAMINATION: GENERAL: The patient is awake, alert and oriented. He is lying in the bed in no distress. VITAL SIGNS: Temperature 97.6, pulse 96, respiratory rate 24, blood pressure 122/72, pulse ox 96%. HEENT: Head normocephalic, atraumatic. Eyes: Extraocular muscles are intact. Pupils are equal, round and reactive to light and accommodation. Ears: No lesions. Nose appeared normal. Throat: No exudate or erythema. NECK: Supple. No JVD, no carotid bruit. No lymphadenopathy or thyromegaly. LUNGS: Decreased breath sounds, clear to auscultation. Percussion note normal. Chest symmetrical. HEART: S1, S2, no S3. No murmurs. No cyanosis or clubbing. No ascites. Pulses: Dorsalis pedis and posterior tibial pulses +1 to +2 both sides. ABDOMEN: Soft. Nontender. Bowel sounds active. No CVA tenderness. No mass felt. EXTREMITIES: No edema. Full range of motion of all extremities, equal. NEUROLOGIC: No focal deficit. Cranial nerves II through XII are grossly intact. No headache, no double vision or headache. SKIN: Not dry. Intact. Turgor - normal. LYMPHATIC: No palpable lymph nodes/no lymphedema. MUSCULOSKELETAL: Normal joints with no swelling. Muscle tone is normal. ASSESSMENT: 1. Hyponatremia, likely alcoholism and increased fluid intake secondary to that. 2. Thrombocytopenia, abnormal liver profile, history of abnormal liver profile likely alcoholic hepatitis/possibility of liver cirrhosis, rule out. PLAN: 1. Ultrasound of the liver and spleen. 2. Restrict fluid intake by 500 cc. EDUCATION: Discussion with the patient concerning his diagnoses and strongly advised the patient to stop drinking alcohol and quit smoking. TIME SPENT: More than [address] [facility]
--- NOTE | 2017-03-15 08:24 | PN ---
CODING 03/08/17 LEVEL 5 03/09/17 DISCHARGE MTDD
== END 2017-03-09 14:53 | disposition home or self-care (01) | DRG 641 ==
LOC: ED 15:38 → MEDSURG B 19:00
PROVIDERS: ADMIT Internal Medicine; ATTEND Internal Medicine
DX: E87.1 Hypo-osmolality and hyponatremia (principal); E46 Unspecified protein-calorie malnutrition; D69.6 Thrombocytopenia, unspecified; F10.20 Alcohol dependence, uncomplicated; J44.9 Chronic obstructive pulmonary disease, unspecified; I10 Essential (primary) hypertension; E78.5 Hyperlipidemia, unspecified; K21.9 Gastro-esophageal reflux disease without esophagitis; M47.9 Spondylosis, unspecified; M79.661 Pain in right lower leg; M79.651 Pain in right thigh; S22.42XG Multiple fractures of ribs, left side, subsequent encounter for fracture with delayed healing; F17.200 Nicotine dependence, unspecified, uncomplicated; Z12.5 Encounter for screening for malignant neoplasm of prostate; Z79.899 Other long term (current) drug therapy
CPT/HCPCS: 36415; 80053; 80061; 80307; 81001; 83605; 84145; 84443; 85025; 85379; 87040; 93005; 93010; 96360; 96361; 99284; 99285

== ENCOUNTER 2017-09-06 06:50 | Outpatient (CLI) ==
[2017-09-06 07:16] LABS: BASOPHILS # (AUTO) 0.1 K/uL (0-0.2); BASOPHILS % (AUTO) 1.8 % (0.0-3.0); EOSINOPHILS # (AUTO) 0.8 K/ul (0.0-0.7); EOSINOPHILS % (AUTO) 17.4 % (0.0-7.0); HEMOGLOBIN 16.5 g/dl (14.0-18.0); IMMATURE GRANULOCYTE % (AUTO) 0.2 % (0.0-5.0); LYMPHOCYTES # (AUTO) 1.6 K/uL (0.60-3.4); MEAN CORPUSCULAR HEMOGLOBIN 37.2 pg (27.0-31.0); MEAN CORPUSCULAR HGB CONC 37.5 (31.8-35.4); MEAN CORPUSCULAR VOLUME 99.1 fl (80.0-94.0); MONOCYTES # (AUTO) 0.4 K/uL (0.4-2.0); MONOCYTES % (AUTO) 9.1 (0-10); NEUTROPHILS # (AUTO) 1.6 K/ul (2.0-6.9); NEUTROPHILS % (AUTO) 35.5; PLATELET COUNT 175 10^3/uL (140-440); RED BLOOD COUNT 4.44 10^6/ul (4.70-6.10); WHITE BLOOD COUNT 4.53 K/ul (4.2-10.2)
[2017-09-06 07:55] LABS: ALBUMIN 3.9 g/dL (3.4-5.0); ALBUMIN/GLOBULIN RATIO 0.75; ANION GAP 15.3; BILIRUBIN,TOTAL 1.05 mg/dL (0.00-1.20); BUN/CREATININE RATIO 5.06; CHOL/HDL RATIO 1.9 (4.5-6.4); CREATININE 0.79 mg/dL (0.60-1.10); POTASSIUM 4.3 mmol/L (3.5-5.1); TOTAL PROTEIN 9.1 g/dL (6.4-8.2)
--- NOTE | 2017-09-06 08:30 | CT ---
EXAM: CT head without contrast. HISTORY: Headaches. Forgetfulness. Dizziness. COMPARISON: None available. TECHNIQUE: Multiple axial images of the brain were obtained from the skull base through the vertex w ithout intravenous contrast. FINDINGS: There is no intracranial hemorrhage or extraaxial collection. The miller-white differentiat ion is maintained without evidence for acute large vascular territory infarction. There are areas of periventricular and subcortical white matter low attenuation. The cortical sulci and cerebral ventr icles are symmetrically enlarged. The basal cisterns are well visualized. There is no hydrocephalus , mass effect, or midline shift. The left mastoid air cells are hypoplastic, although appear opacifi ed. The paranasal sinuses and right mastoid air cells are clear. The calvarium is intact. IMPRESSION: 1. No acute intracranial abnormality. 2. Chronic small vessel ischemic changes and atrophy.
== END 2017-09-06 06:51 | disposition home or self-care (01) ==
LOC: RAD 06:50
PROVIDERS: ATTEND Internal Medicine
DX: R51 Headache (principal); R42 Dizziness and giddiness; R41.3 Other amnesia; E78.5 Hyperlipidemia, unspecified; I10 Essential (primary) hypertension; J44.9 Chronic obstructive pulmonary disease, unspecified; K75.9 Inflammatory liver disease, unspecified
CPT/HCPCS: 36415; 80053; 80061; 83036; 84443; 85025

== ENCOUNTER 2017-12-25 11:03 | Outpatient (CLI) | END 2017-12-25 11:04 | disposition home or self-care (01) | LOC: LAB 11:03 | PROVIDERS: ATTEND Internal Medicine | DX: R94.5 Abnormal results of liver function studies (principal); E87.1 Hypo-osmolality and hyponatremia | CPT/HCPCS: 36415; 80053; 80061; 80074; 82140; 82150; 82607; 83036; 83690; 84443; 85025 ==

== ENCOUNTER 2017-12-26 08:52 | Outpatient (CLI) ==
--- NOTE | 2017-12-26 09:54 | CT ---
EXAM: CT of the abdomen and pelvis with contrast History: Abdominal pain and hepatitis C Comparison: Chest CT 12/26/2017, abdominal ultrasound 03/08/2017 Technique: Multiplanar CT images through the abdomen and pelvis were obtained following administrati on of IV contrast Findings: Lung bases are clear. No acute osseous abnormalities. Atherosclerotic vascular calcifications. No discrete gallstones identified by CT. The liver is fatt y. No focal liver lesions. Spleen is unremarkable. No renal masses. Appendix is normal. The panc reas and adrenal glands are unremarkable. No bowel obstruction. Mild diffuse bladder wall thickenin g. Colonic diverticulosis. Prostate is not enlarged. No free air and no ascites. Wall thickening i nvolving a short segment of sigmoid colon. No enlarged lymph nodes. Impression: 1. Hepatic steatosis. 2. Colonic diverticulosis. 3. Wall thickening involving a short segment of sigmoid colon could be due to nondistension but mariza ot exclude neoplastic etiology. Correlate with colonoscopy if not recently performed. 4. Atherosclerotic vascular calcifications. 5. Mild diffuse bladder wall thickening could be due to underdistension or cystitis. Correlate with urinalysis.
--- NOTE | 2017-12-26 10:04 | CT ---
EXAM: CT of the chest with contrast History: Chronic obstructive pulmonary disease, history of smoking Comparison: CT abdomen pelvis 12/26/2017, chest CT 03/07/2017 Technique: Multiplanar CT images through the thorax were obtained following administration of IV con trast Findings: Heart size is normal. No pericardial effusion. Great vessels are unremarkable. No patho logically enlarged thoracic lymph nodes. No consolidation. No pleural fluid and no pneumothorax. No suspicious lung masses or lung nodules. No emphysema. Within the visualized upper abdomen, fatty liver. No acute osseous abnormalities. Impression: 1. No acute intrathoracic process. 2. No emphysema.
== END 2017-12-26 08:53 | disposition home or self-care (01) ==
LOC: RAD 08:52
PROVIDERS: ATTEND Internal Medicine
DX: R10.9 Unspecified abdominal pain (principal); K75.9 Inflammatory liver disease, unspecified; J44.9 Chronic obstructive pulmonary disease, unspecified; F17.210 Nicotine dependence, cigarettes, uncomplicated

== ENCOUNTER 2018-01-14 12:28 | Outpatient (CLI) | END 2018-01-14 12:29 | disposition home or self-care (01) | LOC: LAB 12:28 | PROVIDERS: ATTEND Internal Medicine Gastroenterology | DX: R93.8 Abnormal findings on diagnostic imaging of other specified body structures (principal); K76.0 Fatty (change of) liver, not elsewhere classified | CPT/HCPCS: 36415; 80053; 82390; 82728; 82746; 83516; 83540; 83550; 84443; 85025; 85610; 86038 ==

== ENCOUNTER 2018-01-21 12:30 | Outpatient (CLI) | END 2018-01-21 12:31 | disposition home or self-care (01) | LOC: LAB 12:30 | PROVIDERS: ATTEND Internal Medicine Gastroenterology | DX: R79.0 Abnormal level of blood mineral (principal) | CPT/HCPCS: 36415; 81256 ==

== ENCOUNTER 2018-06-18 11:20 | Outpatient (CLI) | END 2018-06-18 11:21 | disposition home or self-care (01) | LOC: LAB 11:20 | PROVIDERS: ATTEND Internal Medicine | DX: E78.5 Hyperlipidemia, unspecified (principal); J44.9 Chronic obstructive pulmonary disease, unspecified; K70.10 Alcoholic hepatitis without ascites; Z12.5 Encounter for screening for malignant neoplasm of prostate | CPT/HCPCS: 36415; 80053; 80061; 82607; 83036; 84443; 85025 ==

== ENCOUNTER 2018-06-20 10:19 | Outpatient (CLI) ==
--- NOTE | 2018-06-20 12:19 | US ---
EXAM: Carotid ultrasound. HISTORY: Dizziness, memory loss COMPARISON: 07/25/2016 FINDINGS: Right cervical carotid: There is minimal atherosclerotic plaque in the right internal carot id artery. Peak systolic velocity right ICA 0.70 meters per second. Velocity right CCA 0.70 meters per second. Velocity ratio right ICA: CCA 1.0. Left cervical carotid: There is minimal atherosclerotic plaque in the left internal carotid artery. Peak systolic velocity left ICA 1.0 meters per second. Velocity left CCA 0.7 meters per second. Ayaan ocity ratio left ICA: CCA 1.5. IMPRESSION: 1. There is mild atherosclerotic plaque in the right internal carotid artery. There is less than 50 % stenosis of the right internal carotid artery. 2. There is mild atherosclerotic plaque in the left internal carotid artery. There is less than 50% stenosis of the left internal carotid artery. 3. Vascular flow in the right and left vertebral artery is antegrade. Previous ultrasound, 07/25/2016, showed. Velocity right ICA 0.6 meters per second. ICA:CCA ratio 0.6 Velocity left ICA 0.6 meters per second. ICA:CCA ratio was 0.6
--- NOTE | 2018-06-20 12:44 | DI ---
EXAM: Two views of the chest. History: Short of breath, bronchitis. Comparison: Chest radiograph 03/07/2017, chest CT 12/26/2017 Findings: Heart size is normal. No focal consolidation. No appreciable pleural fluid and no pneumo thorax. There is central bronchial wall thickening. Atherosclerotic vascular calcifications of the aortic knob. No acute osseous abnormalities. Impression: Bronchial wall thickening but no evidence for pneumonia
== END 2018-06-20 10:20 | disposition home or self-care (01) ==
LOC: RAD 10:19
PROVIDERS: ATTEND Internal Medicine
DX: J42 Unspecified chronic bronchitis (principal); R06.02 Shortness of breath; R42 Dizziness and giddiness

== ENCOUNTER 2018-06-25 06:40 | Outpatient (CLI) ==
--- NOTE | 2018-06-26 11:21 | ECHO2D ---
Date of Exam: 06/25/18 Ordering Physician: DR. STEFFANIE BARRERA Room #: OP Reason for Echo: SOB, HYPERTENSION M-Mode Normal Adult Results LV Dimensions Normal Adult Results AoV Opening excursions >1.6 >1.6 LVEDD-base- 3.5-5.8 4.1 Ao root dimensions 2.0-3.7 3.2 LVESD-base- 3.1-4.6 L. Atrium dimensions 1.9-3.8 3.4 Post. Wall thickness 0.8-1.1 1.0 IV septum (thickness) 0.7-1.2 1.1 Post. Wall excursion 0.72-1.3 NORMAL Septal motion 0.8 Systolic motion R. Ventricular cavity 1.5-2.0 3.6 LVEF 60% 50% Paradoxical septal wall motion NORMAL 2-D : MILDLY HYPOKINETIC SEPTUM, ENLARGED RIGHT VENTRICLE CAVITY, NORMAL VALVES , NO EFFUSION, NO THROMBUS, NORMAL LEFT VENTRICLE AND LEFT ATRIAL SIZE M-MODE: MV: NORMAL AV: NORMAL TV: NORMAL PV: CHAMBER SIZE: ENLARGED RIGHT VENTRICLE CAVITY WALL MOTION: MARKEDLY HYPOKINETIC SEPTUM PERICARDIUM: NORMAL INTERPRETATION: 1. MILDLY HYPOKINETIC SEPTUM EJECTION FRACTION 50% 2. NORMAL VALVES 3. NORMAL LEFT VENTRICLE AND LEFT ATRIAL SIZE 4. ENLARGED RIGHT VENTRICLE SIZE MTDD
== END 2018-06-25 06:41 | disposition home or self-care (01) ==
LOC: CAR 06:40
PROVIDERS: ATTEND Internal Medicine
DX: R06.02 Shortness of breath (principal); I10 Essential (primary) hypertension

== ENCOUNTER 2018-06-26 12:52 | Outpatient (CLI) | END 2018-06-26 12:53 | disposition home or self-care (01) | LOC: CAR 12:52 | PROVIDERS: ATTEND Internal Medicine | DX: R06.02 Shortness of breath (principal) ==

== ENCOUNTER 2018-07-04 07:24 | Outpatient (CLI) ==
--- NOTE | 2018-07-04 08:53 | US ---
EXAM: Ultrasound abdomen limited. HISTORY: Abnormal liver function tests. COMPARISON: 03/08/2017. CT 12/26/2017. TECHNIQUE: Abdominal, real time with image documentation: limited (eg, single organ, quadrant, foll ow-up) FINDINGS: The liver demonstrates mildly increased parenchymal echogenicity without intrahepatic bili franck dilatation. Portal venous flow is normal in direction. The gallbladder is without shadowing sto rosendo, wall thickening or pericholecystic fluid. Common duct measures approximately 0.6 cm. Visualize d portions of the pancreas are unremarkable. IMPRESSION: Suspect fatty infiltration of the liver.
== END 2018-07-04 07:25 | disposition home or self-care (01) ==
LOC: RAD 07:24
PROVIDERS: ATTEND Internal Medicine
DX: R94.5 Abnormal results of liver function studies (principal)

== ENCOUNTER 2018-07-05 09:43 | Outpatient (CLI) | END 2018-07-05 09:44 | disposition home or self-care (01) | LOC: LAB 09:43 | PROVIDERS: ATTEND Internal Medicine | DX: R94.5 Abnormal results of liver function studies (principal) | CPT/HCPCS: 36415; 80053; 85025 ==

== ENCOUNTER 2019-02-10 10:48 | Outpatient (CLI) | END 2019-02-10 10:49 | disposition home or self-care (01) | LOC: LAB 10:48 | PROVIDERS: ATTEND Internal Medicine | DX: E78.5 Hyperlipidemia, unspecified (principal); I10 Essential (primary) hypertension | CPT/HCPCS: 36415; 80053; 80061; 83036; 84443; 85008; 85025 ==

== ENCOUNTER 2022-07-27 09:11 | Observation (INO) ==
[2022-07-27 09:51] LABS: BASOPHILS % (AUTO) 0.6 % (0.0-3.0); EOSINOPHILS # (AUTO) 0.3 K/ul (0.0-0.7); EOSINOPHILS % (AUTO) 5.4 % (0.0-7.0); HEMATOCRIT 36.6 % (42.0-52.0); HEMOGLOBIN 13.7 g/dl (14.0-18.0); IMMATURE GRANULOCYTE % (AUTO) 0.2 % (0.0-5.0); LYMPHOCYTES # (AUTO) 1.2 K/uL (0.60-3.4); LYMPHOCYTES % (AUTO) 19.3 (10.0-50.0); MEAN CORPUSCULAR HEMOGLOBIN 37.2 pg (27.0-31.0); MEAN CORPUSCULAR HGB CONC 37.4 (31.8-35.4); MEAN CORPUSCULAR VOLUME 99.5 fl (80.0-94.0); MONOCYTES # (AUTO) 0.7 K/uL (0.4-2.0); MONOCYTES % (AUTO) 11.8 (0-10); NEUTROPHILS # (AUTO) 3.9 K/ul (2.0-6.9); NEUTROPHILS % (AUTO) 62.7 % (42.2-75.2); PLATELET COUNT 218 10^3/uL (140-440); RDW COEFFICIENT OF VARIATION 12.5 % (11.6-14.8); RED BLOOD COUNT 3.68 10^6/ul (4.70-6.10); WHITE BLOOD COUNT 6.27 K/ul (4.2-10.2)
[2022-07-27 10:09] LABS: ALANINE AMINOTRANSFERASE 16.4 U/L (0-50); ALBUMIN 4.13 g/dL (3.5-5.0); ALKALINE PHOSPHATASE 80.7 U/L (56-119); ASPARTATE AMINO TRANSFERASE 35.8 U/L (17-59); BILIRUBIN,TOTAL 0.85 mg/dL (0.2-1.3); BLOOD UREA NITROGEN 6.2 mg/dL (9-20); CALCIUM 9.01 mg/dL (8.4-10.2); CARBON DIOXIDE 19.2 mmol/L (22-30.0); CHLORIDE 90.6 mmol/L (98-107); CREATINE KINASE 43.2 U/L (55-170); CREATININE 0.59 mg/dL (0.60-1.10); GLUCOSE 117.8 mg/dL (74-106); POTASSIUM 4.35 mmol/L (3.5-5.1); SODIUM 121.6 mmol/L (134.5-145); TOTAL PROTEIN 7.89 g/dL (6.3-8.2)
[2022-07-27 10:25] LABS: TROPONIN I < 0.012 ng/ml (0.0000-0.120)
[2022-07-27] MEDS ORDERED: ASPIRIN CHEWABLE PO STA (10:31)
--- NOTE | 2022-07-27 10:33 | ED.PDOC ---
General ED Provider: Dr. CARLOS ENRIQUE KYLE Chief Complaint: Non-specific Complaint Stated Complaint: Patient is a 57 year old male who states that he has been having chest pain for the past 1 day, Pain is worse today. Time Seen by Provider: 07/27/22 09:31 Mode of Arrival: Walk-In Information Source: Patient Primary Care Provider: STEFFANIE BARRERA Nursing and Triage Documentation Reviewed and Agree: Yes Does patient meet sepsis criteria?: No System Inflammatory Response Syndrome: Not Applicable Sepsis Protocol: For patient's 13 years and over: Temp is 96.8 and below OR 101 and greater Pulse >90 BPM Resp >20/minute Acutely Altered Mental Status Are patient's symptoms suggestive of a new infection, such as: -Pneumonia -Skin, Soft Tissue -Endocarditis -UTI -Bone, Joint Infection -Implantable Device -Acute Abdominal Infection -Wound Infection -Meningitis -Blood Stream Catheter Infection -Unknown Cardiovascular Complaint Exam Chest Pain Complaint/Exam Onset: Gradual Duration: comes to the ER with chest pain radiating to the back. Pain started yesterd Review of Systems Review Of Systems Constitutional: Reports Other (Wt loss) Eyes: Reports No symptoms Ears, Nose, Mouth, Throat: Reports No symptoms Respiratory: Reports Cough (non productive ) Cardiac: Reports Chest pain GI: Reports No symptoms : Reports No symptoms Musculoskeletal: Reports No symptoms Skin: Reports No symptoms Neurological: Reports Anxiety Hematologic/Lymphatic: Reports No symptoms All Other Systems: Reviewed and Negative [facility] Medical History (Updated 07/27/22 @ 15:50 by CARLOS ENRIQUE KYLE MD) Asthma COPD (chronic obstructive pulmonary disease) Emphysema lung GERD (gastroesophageal reflux disease) Hypertension Family History (Updated 07/27/22 @ 15:48 by NOAH LEVIN RN) Mother Alzheimer disease Social History (Updated 07/27/22 @ 15:48 by NOAH LEVIN RN) Smoking and tobacco status: Current every day smoker Tobacco type: cigarettes Alcohol intake: current Alcohol intake frequency: 3 or more drinks per day Counseling given: Yes Physical Exam Physical Exam Appearance: Reports Thin Ill-appearing: Mild Pain Distress: Moderate Eyes: Reports JAYASHREE, EOMI and Conjunctiva clear ENT: Reports Nose normal and Oropharynx normal Neck: Supple (no stridor, No bruits ) Respiratory: Reports Airway patent, Breath sounds clear and Breath sounds diminished Cardiovascular: Reports RRR, Pulses normal and No rub GI/: Reports Soft and Nontender Musculoskeletal: Reports Normal strength, ROM intact and No edema Skin: Reports Warm and Dry Neurological: Reports Motor intact, Alert and Oriented Psychiatric: Reports Anxious Interpretation Radiology Interpretation Radiology Interpretation By: Radiologist Radiology Results: Positive Exam Interpreted: CT Scan (IMPRESSION: 1. Unexpected finding: New irregular cavitary mass in the left upper lobe measuring 2.5 x 1.8 cm, very suspicious for neoplasm. 2. Mild linear scarring or atelectasis at the right lung base posteriorly. 3. Atherosclerosis and coronary artery calcification. 4. Mild degenerative conn) Radiology Interpretation By: Radiologist Radiology Results: Positive (1. No acute intracranial abnormality. 2. Scalp laceration.) Exam Interpreted: CT Scan Ring Striker Rate: Normal Rhythm: Sinus Ectopy: None EKG Interpretation Time of EKG #1: 09:50 Rate: Normal Rhythm: Sinus Ectopy: None [place]: [place] ST Segment: Normal Interpretation: normal EKG Physician Notification Case Discussed Physician Notified: Kris ( [employer]) Time of Notification: 12:20 (Declined starting needs ICU.) Physician Notified: Notified Hospitalist at [facility]. Time of Notification: 13:20 (Declined due to not having Interventional Radiolgist to do a Biopsy of the lung mass, ) Critical Care Note Critical Care Note Total Critical Care Time (mins): 0 Course Course Hematology/Chemistry: 07/27/22 09:45 07/27/22 09:45 Orders, Labs, Meds: Lab Review 07/27/22 07/27/22 07/27/22 09:45 09:45 09:45 WBC 6.27 RBC 3.68 L Hgb 13.7 L Hct 36.6 L MCV 99.5 H MCH 37.2 H MCHC 37.4 H RDW Coeff of Marcus 12.5 Plt Count 218 Immature Gran % (Auto) 0.2 Neut % (Auto) 62.7 Lymph % (Auto) 19.3 Victoria % (Auto) 11.8 H Eos % (Auto) 5.4 Baso % (Auto) 0.6 Neut # (Auto) 3.9 Lymph # (Auto) 1.2 Victoria # (Auto) 0.7 Eos # (Auto) 0.3 Baso # (Auto) 0.0 Immature Gran # (Auto) 0.0 Sodium 121.6 L Potassium 4.35 Chloride 90.6 L Carbon Dioxide 19.2 L Anion Gap 16.15 BUN 6.2 L Creatinine 0.59 L Estimated GFR (MDRD) 141.00 BUN/Creatinine Ratio 10.50 Glucose 117.8 H Calcium 9.01 Total Bilirubin 0.85 AST 35.8 ALT 16.4 Alkaline Phosphatase 80.7 Total Creatine Kinase 43.2 L Troponin I < 0.012 Total Protein 7.89 Albumin 4.13 Globulin 3.76 Albumin/Globulin Ratio 1.09 Amylase 85.1 Lipase 215.0 Urine Color Urine Clarity Urine pH Ur Specific [place] Urine Protein Urine Glucose (UA) Urine Ketones Urine Blood Urine Nitrite Urine Bilirubin Urine Urobilinogen Ur Leukocyte Esterase SARS CoV-2 RNA Rapid SHIRAZ 07/27/22 07/27/22 10:41 11:20 WBC RBC Hgb Hct MCV MCH MCHC RDW Coeff of Marcus Plt Count Immature Gran % (Auto) Neut % (Auto) Lymph % (Auto) Victoria % (Auto) Eos % (Auto) Baso % (Auto) Neut # (Auto) Lymph # (Auto) Victoria # (Auto) Eos # (Auto) Baso # (Auto) Immature Gran # (Auto) Sodium Potassium Chloride Carbon Dioxide Anion Gap BUN Creatinine Estimated GFR (MDRD) BUN/Creatinine Ratio Glucose Calcium Total Bilirubin AST ALT Alkaline Phosphatase Total Creatine Kinase Troponin I Total Protein Albumin Globulin Albumin/Globulin Ratio Amylase Lipase Urine Color Yellow Urine Clarity Clear Urine pH 6.0 Ur Specific [place] 1.015 Urine Protein Negative Urine Glucose (UA) Negative Urine Ketones 2+ H Urine Blood Negative Urine Nitrite Negative Urine Bilirubin Negative Urine Urobilinogen 0.2 Ur Leukocyte Esterase Negative SARS CoV-2 RNA Rapid SHIRAZ Negative Orders Category Date Time Status EKG-(ED ONLY) Stat CARDIO 07/27/22 09:35 Completed AMYLASE Stat LAB 07/27/22 09:45 Completed CBC W/ AUTO DIFF Stat LAB 07/27/22 09:45 Completed COMPREHENSIVE METABOLIC PANEL Stat LAB 07/27/22 09:45 Completed CREATINE KINASE Stat LAB 07/27/22 09:45 Completed LIPASE Stat LAB 07/27/22 09:45 Completed SARS COV-2 RNA RAPID SHIRAZ Stat LAB 07/27/22 10:41 Completed TROPONIN I Stat LAB 07/27/22 09:45 Completed URINALYSIS C & S IF INDICATED Stat LAB 07/27/22 11:20 Completed Aspirin [Aspirin Chewable] MEDS 07/27/22 10:31 Discontinued 324 mg PO ONCE STA Folic Acid 1 mg MEDS 07/27/22 11:00 Active 0.9 % Sodium Chloride [Sodium Chloride] 50 ml IV DAILY Mag-Al Plus//Lidocaine [Gi Cocktail] MEDS 07/27/22 10:46 Discontinued 30 ml PO ONCE ONE Morphine Sulfate [Morphine 2 mg/ml Syringe] MEDS 07/27/22 11:32 Discontinued 2 mg IVP ONCE ONE Pantoprazole Sodium [Protonix IV] MEDS 07/27/22 10:46 Discontinued 40 mg IVP ONCE ONE Potassium Chloride in 0.9%NaCl [Sodium Chloride 0.9%- MEDS 07/27/22 11:00 Active KCl 20 Meq] 1,000 ml Mvi, Adult No.1 with Vit K [Infuvite Adult] 10 ml IV 125 mls/hr Sodium Chloride 0.9% [Sodium Chloride] 500 ml MEDS 07/27/22 13:38 Discontinued IV BOLUS Vitamin B-1 Inj [Thiamine] 100 mg MEDS 07/27/22 11:00 Active 0.9 % Sodium Chloride [Sodium Chloride] [address] CHEST W/O CONTRAST Stat RADS 07/27/22 10:[address] HEAD W/O CONTRAST Stat RADS 07/27/22 10:08 Completed Medications Generic Name Dose Route Start Last Admin Trade Name Freq PRN Reason Stop Dose Admin Aspirin 81 mg 07/28/22 08:30 Aspirin 81 Mg Tablet. PO DAILYWM [facility] Chlordiazepoxide HCl 10 mg 07/27/22 21:00 Chlordiazepoxide Hcl 10 Mg Capsule PO BID [facility] Diltiazem HCl 60 mg 07/27/22 21:00 Diltiazem Hcl 60 Mg Tablet PO BID [facility] Enoxaparin Sodium 40 mg 07/28/22 09:00 Enoxaparin Sodium 40 Mg/0.4 Ml Syr SUBCUT DAILY [facility] Hydroxyzine HCl 25 mg 07/28/22 09:00 Hydroxyzine Hcl 25 Mg Tablet PO DAILY [facility] Multivitamins/Minerals 10 ml/ 1,010 mls @ 125 mls/hr 07/27/22 11:00 07/27/22 11:31 Potassium Chloride/Sodium IV 125 mls/hr Chloride .Q8H5M RAFA Administration Folic Acid 1 mg/ Sodium 50.2 mls @ 100 mls/hr 07/27/22 11:00 07/27/22 11:31 Chloride IV 100 mls/hr DAILY RAFA Administration Thiamine HCl 100 mg/ Sodium 51 mls @ 100 mls/hr 07/27/22 11:00 07/27/22 12:15 Chloride IV 100 mls/hr DAILY RAFA Administration Sodium Chloride 1,000 mls @ 125 mls/hr 07/27/22 15:30 Sodium Chloride IV .Q8H RAFA Losartan Potassium 50 mg 07/28/22 09:00 Losartan Potassium 25 Mg Tablet PO DAILY [facility] Ondansetron HCl 4 mg 07/27/22 15:02 Ondansetron Hcl/Pf 4 Mg/2 Ml Sdv IVP Q6H PRN Nausea / Vomiting Pantoprazole Sodium 40 mg 07/28/22 09:00 Pantoprazole Sodium 40 Mg Vial IVP DAILY [facility] Tamsulosin HCl 0.4 mg 07/28/22 09:00 Tamsulosin Hcl 0.4 Mg Cap.Er.24h PO DAILY RAFA Discontinued Medications Generic Name Dose Route Start Last Admin Trade Name Freq PRN Reason Stop Dose Admin Al Hydroxide/Mg Hydroxide 30 ml 07/27/22 10:46 07/27/22 11:10 Mag-Al Plus//Lidocaine 30 Ml Btl PO 07/27/22 10:47 30 ml ONCE ONE Administration Aspirin 324 mg 07/27/22 10:31 07/27/22 10:39 Aspirin 81 Mg Tab.Chew PO 07/27/22 10:32 324 mg ONCE STA Administration Chlordiazepoxide HCl 10 mg 07/27/22 21:00 Chlordiazepoxide Hcl 5 Mg Capsule PO BID [facility] Sodium Chloride 500 mls @ 500 mls/hr 07/27/22 13:38 07/27/22 14:54 Sodium Chloride IV 07/27/22 14:37 500 mls/hr BOLUS STA Administration Morphine Sulfate 2 mg 07/27/22 11:32 07/27/22 11:38 Morphine Sulfate 2 Mg/Ml Syringe IVP 07/27/22 11:33 2 mg ONCE ONE Administration Pantoprazole Sodium 40 mg 07/27/22 10:46 07/27/22 11:10 Pantoprazole Sodium 40 Mg Vial IVP 07/27/22 10:47 40 mg ONCE ONE Administration Vital Signs: Temp Pulse Resp BP Pulse Ox 07/27/22 09:12 98.5 F 97 20 145/82 H 97 IGLESIA Risk Score Age >/= 65: No >/= 3 CAD Risk Factors: Yes Known CAD (Stenosis >/= 50%): No ASA Use in Past 7 Days: No Severe Angina (>/= 2 episodes in 24 hours): No EKG ST Changes >/= 0.5mm: No Postive Cardiac Marker: No IGLESIA Total Score: 1 IGLESIA Risk Score: Risk Score Odds of by 30D 0 0.1 (0.1-0.2) 1 0.3 (0.2-0.3) 2 0.4 (0.3-0.5) 3 0.7 (0.6-0.9) 4 1.2 (1.0-1.5) 5 2.2 (1.9-2.6) 6 3.0 (2.5-3.6) 7 4.8 (3.8-6.1) Discharge Plan Discharge Patient Disposition: TSF SHORT-TRM HOSP Discharge Problem: Mass of left lung, Hyponatremia, Frequent falls, Alcohol abuse, Chest pain Did you review [place] [employer]ATOR?: Not Applicable ED Provider: CARLOS ENRIQUE KYLE Condition: Fair Physician Progress Note: []
--- NOTE | 2022-07-27 10:43 | CT ---
EXAM: CT head without contrast TECHNIQUE: Noncontrast CT of the head with multiple reformats. HISTORY: Multiple falls. Scalp laceration. COMPARISON: CT head 09/06/2017. FINDINGS: No evidence of acute infarction, hemorrhage, or mass. Moderate brain volume loss. Mild nonspecific white matter hypodensities, likely chronic microvascula r ischemic changes. Mild calcific atherosclerosis of the carotid siphons. No brain herniation. Patent basilar cisterns. Ventricles are proportional to brain volume. No acute osseous abnormality. Right lateral scalp laceration. Mild scattered sinus mucosal changes. Chronic left mastoid effusion appears unchanged. IMPRESSION: 1. No acute intracranial abnormality. 2. Scalp laceration. All CT scans are performed using dose optimization techniques as appropriate to the performed exam an d include at least one of the following: Automated exposure control, adjustment of the mA and/or kV according t o size, and the use of iterative reconstruction technique.
[2022-07-27] MEDS ORDERED: PROTONIX IV IVP ONE (10:46)
[2022-07-27] MEDS ORDERED: GI COCKTAIL PO ONE (10:46)
--- NOTE | 2022-07-27 10:49 | CT ---
EXAM: CHEST CT WITHOUT CONTRAST HISTORY: Chest pain. History of chronic obstructive pulmonary disease. TECHNIQUE: CT acquisition of the chest from the thoracic inlet to the upper abdomen without IV contra st administration.2-D coronal and sagittal reformatted images were obtained from the axial source [email or web address]. IV Contrast: None CT Dose Reduction Techniques Performed: Yes. COMPARISON: 12/26/2017. FINDINGS: Lines, Tubes, Devices: None. Lung Parenchyma and Airways: Central airways are patent without endobronchial lesion. No focal conso lidation or interstitial disease. There is a new irregular cavitary mass in the left upper lobe medi ally measuring 2.5 x 1.8 cm on axial image 17, very suspicious for neoplasm. There is no other pulmo nary nodule or mass lesion. Mild linear scarring or atelectasis at the right lung base posteriorly. Pleural Space: No pleural effusion or thickening. No pneumothorax. Thoracic Inlet, Mediastinum, and Bridgette: Thyroid gland is normal. No lymphadenopathy. Heart, Vessels, and Pericardium: The main pulmonary artery is normal caliber. The thoracic aorta is not dilated. There is calcification in the wall of the aorta consistent with atherosclerosis. There is coronary artery calcification. The heart chambers are not enlarged. There is no pericardial effu khoa or thickening. Bones and Soft Tissues: There are mild degenerative changes of the spine. There is no fracture, lyti c lesion, or blastic lesion. Chest wall soft tissues are unremarkable. Upper Abdomen: The visualized portions of the liver, spleen, and adrenals are normal. IMPRESSION: 1. Unexpected finding: New irregular cavitary mass in the left upper lobe measuring 2.5 x 1.8 cm, v luke suspicious for neoplasm. 2. Mild linear scarring or atelectasis at the right lung base posteriorly. 3. Atherosclerosis and coronary artery calcification. 4. Mild degenerative changes of the spine. 5. Otherwise unremarkable noncontrast CT scan of the chest. All CT scans are performed using dose optimization techniques as appropriate to the performed exam an d include at least one of the following: Automated exposure control, adjustment of the mA and/or kV according t o size, and the use of iterative reconstruction technique.
[2022-07-27 10:53] LABS: AMYLASE 85.1 U/L (30-110)
[2022-07-27] MEDS ORDERED: FOLIC ACID 1 MG in SODIUM CHLORIDE 50 ML IV SCH (11:00)
[2022-07-27] MEDS ORDERED: INFUVITE ADULT 10 ML in SODIUM CHLORIDE 0.9%-KCL 20 MEQ 1,000 ML IV SCH (11:00)
[2022-07-27 11:28] LABS: BILIRUBIN,URINE Negative (NEGATIVE); CLARITY,URINE Clear (CLEAR); COLOR,URINE Yellow (YELLOW); GLUCOSE, URINE (UA) Negative (NEGATIVE); KETONES,URINE 2+ (NEGATIVE); LEUKOCYTE ESTERASE ,URINE Negative (NEGATIVE); NITRITE,URINE Negative (NEGATIVE); PROTEIN,URINE Negative (NEGATIVE); URINE, BLOOD Negative (NEGATIVE); UROBILINOGEN,URINE 0.2 (0.2)
[2022-07-27] MEDS ORDERED: MORPHINE 2 MG/ML SYRINGE IVP ONE (11:32)
[2022-07-27] MEDS: THIAMINE 100 MG in SODIUM CHLORIDE 50 ML IV SCH (12:15)
[2022-07-27] MEDS ORDERED: SODIUM CHLORIDE 500 ML IV STA (13:38)
[2022-07-27] MEDS ORDERED: ZOFRAN 4 MG/2 ML IVP PRN (15:02)
[2022-07-27 15:58] VITALS: BMI 19.6
[2022-07-27] MEDS: NICODERM 21 MG TD SCH (16:15)
[2022-07-27] MEDS: CARDIZEM PO SCH (20:14)
[2022-07-27] MEDS: LIBRIUM PO SCH (20:14)
[2022-07-27] MEDS: MORPHINE 2 MG/ML SYRINGE IVP PRN (20:16)
[2022-07-27] MEDS: SODIUM CHLORIDE 1,000 ML IV SCH ×2 (20:59→23:30)
[2022-07-27] MEDS ORDERED: LIBRIUM PO SCH (21:00)
[2022-07-27 21:15] LABS: CREATINE KINASE 44.7 U/L (55-170)
[2022-07-27 21:29] LABS: TROPONIN I < 0.012 ng/ml (0.0000-0.120)
[2022-07-28 04:54] LABS: BASOPHILS % (AUTO) 0.6 % (0.0-3.0); EOSINOPHILS # (AUTO) 0.5 K/ul (0.0-0.7); HEMATOCRIT 35.8 % (42.0-52.0); IMMATURE GRANULOCYTE % (AUTO) 0.2 % (0.0-5.0); LYMPHOCYTES # (AUTO) 1.1 K/uL (0.60-3.4); LYMPHOCYTES % (AUTO) 24.4 (10.0-50.0); MEAN CORPUSCULAR HEMOGLOBIN 36.7 pg (27.0-31.0); MEAN CORPUSCULAR HGB CONC 36.3 (31.8-35.4); MEAN CORPUSCULAR VOLUME 101.1 fl (80.0-94.0); MONOCYTES # (AUTO) 0.5 K/uL (0.4-2.0); MONOCYTES % (AUTO) 9.8 (0-10); NEUTROPHILS # (AUTO) 2.6 K/ul (2.0-6.9); PLATELET COUNT 224 10^3/uL (140-440); RDW COEFFICIENT OF VARIATION 12.8 % (11.6-14.8); RED BLOOD COUNT 3.54 10^6/ul (4.70-6.10); WHITE BLOOD COUNT 4.68 K/ul (4.2-10.2)
[2022-07-28 05:06] LABS: ALANINE AMINOTRANSFERASE 17.3 U/L (0-50); ALBUMIN 3.39 g/dL (3.5-5.0); ALKALINE PHOSPHATASE 64.7 U/L (56-119); ASPARTATE AMINO TRANSFERASE 51.9 U/L (17-59); BILIRUBIN,TOTAL 0.61 mg/dL (0.2-1.3); BLOOD UREA NITROGEN 3.7 mg/dL (9-20); CALCIUM 8.45 mg/dL (8.4-10.2); CARBON DIOXIDE 26.6 mmol/L (22-30.0); CHLORIDE 102.6 mmol/L (98-107); CREATINE KINASE 39.8 U/L (55-170); CREATININE 0.52 mg/dL (0.60-1.10); GLUCOSE 95.8 mg/dL (74-106); POTASSIUM 3.85 mmol/L (3.5-5.1); SODIUM 131.2 mmol/L (134.5-145); TOTAL PROTEIN 6.81 g/dL (6.3-8.2)
[2022-07-28 05:19] LABS: TROPONIN I < 0.012 ng/ml (0.0000-0.120)
[2022-07-28] MEDS: SODIUM CHLORIDE 1,000 ML IV SCH ×5 (05:24→20:43)
[2022-07-28] MEDS: MORPHINE 2 MG/ML SYRINGE IVP PRN ×2 (07:37→16:48)
--- NOTE | 2022-07-28 08:45 | PCM.PROG ---
Date Seen by Provider: 07/28/22 Time Seen by Provider: 07:35 Subjective: Pt is doing well. Still with chest pain that has been treated with morphine. Denies any respiratory distress. No shakes or signs of alcohol withdrawal. Objective: Vitals: T=97.6 F, P=57, R=16, BN=979/77, GMU6=297 HEENT: PERRL Neck: supple Lungs: clear and equal BS CVS: RRR Abdomen: soft, NT Extremities: normal Neurological: A+O x 3 no focal findings Lab/Tests/Diagnostic Imaging: Trop negative x 2. Sodium up to 131 from 121. (1) Hyponatremia: Status: Acute Code(s): E87.1 - Hypo-osmolality and hyponatremia SNOMED Code(s): 07655695 (2) Mass of left lung: Status: Acute Code(s): R91.8 - Other nonspecific abnormal finding of lung field SNOMED Code(s): 107546274 (3) Chest pain: Status: Acute Code(s): R07.9 - Chest pain, unspecified SNOMED Code(s): 82429458 Plan: 1. Hyponatremia: Much improved. Continue fluids. 2. Chest Pain: Does not appear cardiac with constant atypical pain and negative troponins x 2. 3. Lung Mass: Pt will be transferred to Dr. Mena's service for further management and referral.
[2022-07-28] MEDS ORDERED: THIAMINE ONE (08:49)
[2022-07-28] MEDS ORDERED: DECADRON IVP ONE (08:53)
[2022-07-28] MEDS: LOVENOX SUBCUT SCH (08:54)
[2022-07-28] MEDS ORDERED: THIAMINE 100 MG in SODIUM CHLORIDE 50 ML IV SCH (09:00)
[2022-07-28] MEDS ORDERED: COZAAR PO SCH (09:00)
[2022-07-28] MEDS: THIAMINE 100 MG in SODIUM CHLORIDE 50 ML IV SCH (09:03)
[2022-07-28] MEDS: CARDIZEM PO SCH ×2 (09:05→20:14)
[2022-07-28] MEDS: FLOMAX PO SCH (09:05)
[2022-07-28] MEDS: ASPIRIN EC PO SCH (09:05)
[2022-07-28] MEDS: ATARAX PO SCH (09:06)
[2022-07-28] MEDS: COZAAR PO SCH (09:06)
[2022-07-28] MEDS: LIBRIUM PO SCH ×2 (09:06→20:14)
[2022-07-28] MEDS: NICODERM 21 MG TD SCH (09:10)
[2022-07-28] MEDS: PROTONIX IV IVP SCH (09:10)
[2022-07-29] MEDS: SODIUM CHLORIDE 1,000 ML IV SCH ×2 (00:32→04:53)
[2022-07-29] MEDS: NICODERM 21 MG TD SCH ×2 (02:55→08:26)
[2022-07-29 05:00] LABS: EOSINOPHILS % (AUTO) 0.5 % (0.0-7.0); HEMATOCRIT 34.3 % (42.0-52.0); HEMOGLOBIN 12.3 g/dl (14.0-18.0); IMMATURE GRANULOCYTE % (AUTO) 0.4 % (0.0-5.0); LYMPHOCYTES # (AUTO) 0.7 K/uL (0.60-3.4); MEAN CORPUSCULAR HEMOGLOBIN 36.6 pg (27.0-31.0); MEAN CORPUSCULAR HGB CONC 35.9 (31.8-35.4); MEAN CORPUSCULAR VOLUME 102.1 fl (80.0-94.0); MONOCYTES # (AUTO) 0.5 K/uL (0.4-2.0); MONOCYTES % (AUTO) 8.8 (0-10); NEUTROPHILS # (AUTO) 4.3 K/ul (2.0-6.9); NEUTROPHILS % (AUTO) 78.3 % (42.2-75.2); PLATELET COUNT 215 10^3/uL (140-440); RDW COEFFICIENT OF VARIATION 12.6 % (11.6-14.8); RED BLOOD COUNT 3.36 10^6/ul (4.70-6.10); WHITE BLOOD COUNT 5.48 K/ul (4.2-10.2)
[2022-07-29 05:10] LABS: ALANINE AMINOTRANSFERASE 19.7 U/L (0-50); ALBUMIN 3.57 g/dL (3.5-5.0); ALKALINE PHOSPHATASE 61.3 U/L (56-119); ASPARTATE AMINO TRANSFERASE 39.4 U/L (17-59); BILIRUBIN,TOTAL 0.49 mg/dL (0.2-1.3); BLOOD UREA NITROGEN 3.6 mg/dL (9-20); CALCIUM 8.42 mg/dL (8.4-10.2); CARBON DIOXIDE 23.4 mmol/L (22-30.0); CHLORIDE 101.9 mmol/L (98-107); CREATININE 0.49 mg/dL (0.60-1.10); GLUCOSE 118.5 mg/dL (74-106); POTASSIUM 3.59 mmol/L (3.5-5.1); TOTAL PROTEIN 7.04 g/dL (6.3-8.2)
[2022-07-29] MEDS: LIBRIUM PO SCH (08:16)
[2022-07-29] MEDS: CARDIZEM PO SCH (08:16)
[2022-07-29] MEDS: COZAAR PO SCH (08:16)
[2022-07-29] MEDS: ASPIRIN EC PO SCH (08:16)
[2022-07-29] MEDS: FLOMAX PO SCH (08:17)
[2022-07-29] MEDS: ATARAX PO SCH (08:17)
[2022-07-29] MEDS: LOVENOX SUBCUT SCH (08:17)
[2022-07-29] MEDS: PROTONIX IV IVP SCH (08:33)
[2022-07-29] MEDS: THIAMINE 100 MG in SODIUM CHLORIDE 50 ML IV SCH (08:39)
[2022-07-29] MEDS ORDERED: PREVNAR 20 SYRINGE IM ONE (08:47)
[2022-07-29 10:13] VITALS: BP 111/63; TEMP 97.6
--- NOTE | 2022-07-31 07:35 | ECHO2D ---
Date of Exam: 07/28/2022 Ordering Physician: DR. STEFFANIE BARRERA Room #: 103 Reason for Echo: SOB, HTN, COPD, CHEST PAIN M-Mode Normal Adult Results LV Dimensions Normal Adult Results AoV Opening excursions >1.6 >1.6 LVEDD-base- 3.5-5.8 4.6 Ao root dimensions 2.0-3.7 3.6 LVESD-base- 3.1-4.6 L. Atrium dimensions 1.9-3.8 3.4 Post. Wall thickness 0.8-1.1 1.2 IV septum (thickness) 0.7-1.2 1.2 Post. Wall excursion 0.72-1.3 NORMAL Septal motion NORMAL Systolic motion R. Ventricular cavity 1.5-2.0 >3.5 LVEF 60% 68% Paradoxical septal wall motion NORMAL 2-D : 2-D M Mode Echocardiogram was performed using apical four chamber and left parasternal long and short axis views. Mitral, tricuspid and aortic valves appear to be normal. Contractility of the left ventricle seems to be normal, so is the cavity size. Left atrial cavity size and aortic root appear to be normal. There is no pericardial effusion. There is no thrombus noted in the left ventricle or left atrial cavity. ENLARGED RIGHT VENTRICLE CAVITY --SUB COSTAL APPROACH WAS USED BECAUSE OF SEVERE COPD M-MODE: MV: NORMAL AV: NORMAL TV: NORMAL PV: CHAMBER SIZE: ENLARGED RIGHT VENTRICLE CAVITY WALL MOTION: NORMAL PERICARDIUM: NORMAL INTERPRETATION: 1. BORDERLINE LEFT VENTRICLE HYPERTROPHY 2. ENLARGED RIGHT VENTRICLE CAVITY 3. VALVES--NORMAL 4. SHAUN LEFT VENTRICLE SIZE AND CONTRACTILITY SUBCOSTAL APPROACH WAS USED DUE TO SEVERE COPD MTDD
--- NOTE | 2022-07-31 13:42 | PN ---
DATE OF SERVICE: 07/28/22 SUBJECTIVE: The patient was admitted with chest pain which was more like pleuritic pain, more increase in the pain, sharp, both sides of the ribcage with more with deep inspiration. The patient also had back pain going through the spine. There was no associated shortness of breath or hypotension or other alarming symptoms or signs. He is up and about doing well. Appetite has improved. The patient is alcoholic and heavy smoker. Chest x-ray shows mass which was not present on the chest x-ray was done in February 2022. Of course this was picked up by CT scan of the chest. The patient's EKG and cardiac markers are negative. Telemetry has no arrhythmias noted. Echo was done today by me which showed LV contractility with increased RV size. The echo was performed from subcostal view because of the patient's chronic lung disease. REVIEW OF SYSTEMS: CONSTITUTIONAL: No night sweats. No fatigue, malaise, lethargy. No fever or chills. Feeling better. Up and about. HEENT: Eyes: No visual changes. No eye pain. No eye discharge. ENT: No runny nose. No epistaxis. No sinus pain. No sore throat. No odynophagia. No congestion. RESPIRATORY: No cough, no congestion. No hemoptysis. CARDIOVASCULAR: No angina symptoms. No CHF symptoms. No atypical chest pain for CAD. No palpitations. No PND. No orthopnea. Less chest pain, like described with deep inspiration. Exertional chest discomfort. Shortness of breath as usual. GASTROINTESTINAL: No abdominal pain. No nausea or vomiting. No diarrhea or constipation. No hematemesis. No hematochezia. Appetite has improved. GENITOURINARY: No urgency. No frequency. No dysuria. No hematuria. No obstructive symptoms. No discharge. No pain. No significant abnormal bleeding. MUSCULOSKELETAL: No musculoskeletal pain; no joint swelling. NEUROLOGICAL: No headache. No neck pain. No syncope. No seizures. No dizziness. PSYCHIATRIC: Not anxious. No depression. No suicidal thoughts. No homicidal thoughts. SKIN: No rash. No lesions. No wounds. ENDOCRINE: No unexplained weight loss. No weight gain. HEMATOLOGIC/LYMPHATIC: No anemia. No purpura. No petechiae. No prolonged or excessive bleeding. No palpable lymph nodes. PHYSICAL EXAMINATION: VITAL SIGNS: Temperature 97.6, pulse 57, respiratory rate 16, blood pressure 136/77 and pulse ox 100% HEENT: Head normocephalic, atraumatic. Eyes: Extraocular muscles are intact. Pupils are equal, round and reactive to light and accommodation. Ears: No lesions. Nose appeared normal. Throat: No exudate or erythema. NECK: Supple. No JVD, no carotid bruit. No lymphadenopathy or thyromegaly. LUNGS: Decreased breath sounds but clear to auscultation. Percussion note normal. Chest symmetrical. HEART: S1, S2, no S3. No murmurs. No cyanosis or clubbing. No ascites. Pulses: Dorsalis pedis and posterior tibial pulses +1 to +2 bilaterally. ABDOMEN: Soft. Nontender. Bowel sounds active. No CVA tenderness. No mass felt. EXTREMITIES: No edema. Full range of motion of all extremities, equal. NEUROLOGIC: No focal deficit. Cranial nerves II through XII are grossly intact. No headache. No double vision. SKIN: Not dry. Intact. Turgor - normal. LYMPHATIC: No palpable lymph nodes/no lymphedema. MUSCULOSKELETAL: Normal joints with no swelling. Muscle tone is normal. LABS: hgb 13, hct 35, WBC 4,600 with normal differential, creatinine 0.5, BUN 3.7, potassium 3.8, sodium 131. ASSESSMENT: 1. Hyponatremia seems to have practically resolved, sodium is normal now. Hyponatremia is from alcoholism. 2. Chest pain, pleuritic type 3. Abnormal CT scan of the chest with masses noted. PLAN: 1. Shipping Room Supervisor patient for smoking 2. Shipping Room Supervisor for alcoholism, doesn't want any help for alcoholism such as AA or other groups 3. Discussed about abnormal CT scan of the chest and recommended highly that he needs to followup with pulmonary physician, he is agreeable 4. Nutrition discussed, BMI 20. The patient lives by himself with help with sister. CONDITION: Stable. TIME SPENT: More than 30 minutes. Plan and coordination of the patient's care discussed in the presence of nurse. CAMMIE
--- NOTE | 2022-07-31 13:56 | PN ---
DATE OF SERVICE: 07/29/22 SUBJECTIVE: 57 year old white male hospitalized with chest pain and hyponatremia and back pain. The patient's chest pain is practically resolved. The back pain is a lot better. He is up and about wants to go home. Tremors noted, no DT's noted. He is oriented to time, place and person. REVIEW OF SYSTEMS: CONSTITUTIONAL: No night sweats. No fatigue, malaise, lethargy. No fever or chills. HEENT: Eyes: No visual changes. No eye pain. No eye discharge. ENT: No runny nose. No epistaxis. No sinus pain. No sore throat. No odynophagia. No congestion. RESPIRATORY: No cough, no congestion. No hemoptysis. No shortness of breath. CARDIOVASCULAR: No angina symptoms. No CHF symptoms. No atypical chest pain for CAD. No palpitations. No PND. No orthopnea. Pleuritic type of pain on deep inspiration. GASTROINTESTINAL: No abdominal pain. No nausea or vomiting. No diarrhea or constipation. No hematemesis. No hematochezia. GENITOURINARY: No urgency. No frequency. No dysuria. No hematuria. No obstructive symptoms. No discharge. No pain. No significant abnormal bleeding. MUSCULOSKELETAL: No musculoskeletal pain; no joint swelling. NEUROLOGICAL: No headache. No neck pain. No syncope. No seizures. No dizziness. PSYCHIATRIC: Not anxious. No depression. No suicidal thoughts. No homicidal thoughts. SKIN: No rash. No lesions. No wounds. ENDOCRINE: No unexplained weight loss. No weight gain. HEMATOLOGIC/LYMPHATIC: No anemia. No purpura. No petechiae. No prolonged or excessive bleeding. No palpable lymph nodes. PHYSICAL EXAMINATION: VITAL SIGNS: Temperature 97.5, pulse 57, respiratory rate 16, blood pressure 145/83 and pulse ox 100% on room air. HEENT: Head normocephalic, atraumatic. Eyes: Extraocular muscles are intact. Pupils are equal, round and reactive to light and accommodation. Ears: No lesions. Nose appeared normal. Throat: No exudate or erythema. NECK: Supple. No JVD, no carotid bruit. No lymphadenopathy or thyromegaly. LUNGS: Decreased breath sounds but clear to auscultation. Percussion note normal. Chest symmetrical. HEART: S1, S2, no S3. No murmurs. No cyanosis or clubbing. No ascites. Pulses: Dorsalis pedis and posterior tibial pulses +1 to +2 bilaterally. ABDOMEN: Soft. Nontender. Bowel sounds active. No CVA tenderness. No mass felt. EXTREMITIES: No edema. Full range of motion of all extremities, equal. NEUROLOGIC: No focal deficit. Cranial nerves II through XII are grossly intact. No headache. No double vision. SKIN: Not dry. Intact. Turgor - normal. LYMPHATIC: No palpable lymph nodes/no lymphedema. MUSCULOSKELETAL: Normal joints with no swelling. Muscle tone is normal. LABS: Hgb 12.3, hct 34, WBC 5,400 normal differential, creatinine 0.4, BUN 3, potassium 3.6, sodium 131 ASSESSMENT: 1. Chest pain practically has resolved was pleuritic type 2. Hyponatremia a lot better with Sodium of [address] scan, the patient has appointment with Dr. Jiménez. The patient was explained that he is going to get call from Dr. Jiménez to set up an appointment so answer all the phone calls, he agreed. PLAN: 1. See him back on August 07 at 11:30am 2. Strongly advised to quit smoking, drinking and lifestyle discussed 3. Advised to eat three meals 4. Explained again about CT scan of the chest and the report TIME SPENT: More than 30 minutes. Plan and coordination of the patient's care discussed in the presence of nurse. CAMMIE
--- NOTE | 2022-07-31 14:51 | DS ---
DATE OF SERVICE: 07/29/22 FINAL DIAGNOSIS: 1. Chest pain, more like pleuritic type pain 2. Hyponatremia likely from alcoholism 3. Abnormal CT scan of the chest 4. Severe chronic lung disease 5. Chronic alcoholism 6. Malnourishment 7. Hypertension 8. Gastroesophageal reflux disease 9. BPH DISCHARGE INSTRUCTIONS: Discharge home. Instruction for followup on August 07 at 11:30am also to followup with Dr. Jiménez. The patient is to receive the call to set up his appointment. CODE STATUS: FULL CODE. MEDICATIONS AT DISCHARGE: Diltiazem 60mg twice a day Chlordiazepoxide 10mg twice a day Trelegy Ellipta one to two puffs every morning Hydroxyzine 25mg PO daily Losartan 50mg PO daily Pantoprazole 40mg QAM. Tamsulosin 0.4mg DIET INSTRUCTIONS: Regular diet with thin liquids and Boost supplements ACTIVITY: Use straight cane with ambulation LABS: Hgb 12.3, hct 34, WBC 5,400 normal differential, creatinine 0.4, BUN 3, potassium 3.5, sodium 131. Cardiac markers are negative. CT scan of the chest abnormal with masses in the lung noted. Echocardiogram showed increase RV cavity otherwise normal 2D M mode. Costal approach was used because of COPD. HOSPITAL COURSE: 57 year old white male hospitalized on 07/27/22 under hospital services as I was out of town, I took over the care 07/28/22. I examined the patient and the patient underwent echo which showed increased RV cavity. Assessment at time of discharge that the patient had pleuritic type of pain brought under control with steroids and antiinflammatory. The patient asked for heavy pain medication which he was denied. At the time of discharge he was not at all in distress, he was up and about. Appetite had improved. He had no evidence of DTs. Sister is to take care of him which she pays visit everyday to him. Counseling for smoking and alcohol was done. The patient is to see pulmonary physician as an outpatient. The patient is noncompliant of all aspects of medical care. His prognosis is not good. TIME SPENT: More than 60 minutes. CAMMIE
--- NOTE | 2022-08-01 11:39 | PN ---
07/28/22: Intermediate 07/29/22: D as in discharge MTDD
== END 2022-07-29 13:40 | disposition home health service (06) ==
LOC: ED 09:11 → INTOOBSV 14:48 → MEDSURG A 14:48
PROVIDERS: ADMIT Internal Medicine; ATTEND Internal Medicine
DX: N40.0 Benign prostatic hyperplasia without lower urinary tract symptoms; F17.210 Nicotine dependence, cigarettes, uncomplicated; I10 Essential (primary) hypertension; E87.1 Hypo-osmolality and hyponatremia; R07.81 Pleurodynia; R91.8 Other nonspecific abnormal finding of lung field; R07.9 Chest pain, unspecified; F10.20 Alcohol dependence, uncomplicated; E46 Unspecified protein-calorie malnutrition; K21.9 Gastro-esophageal reflux disease without esophagitis; J44.9 Chronic obstructive pulmonary disease, unspecified; Z20.822 Contact with and (suspected) exposure to COVID-19; R29.6 Repeated falls; Z68.20 Body mass index [BMI] 20.0-20.9, adult; M54.9 Dorsalgia, unspecified